=== PATIENT | male | born 1970 | race African-American/Black ===

== ENCOUNTER 2020-12-04 13:30 | Inpatient (IN) | payer OTHER ==
[~2020-12-04] VITALS: Ht 182.9 cm; Wt 105.6 kg
[~2020-12-04 13:30] MED LIST: ALBU108A5 IN; ATO40T PO; INSLANTI SC; INSREG3 IV; LEVO500T31 PO; LISI-716 PO; METF-372 PO
[2020-12-04 16:00] VITALS: BP 127/74
[2020-12-04] MEDS ORDERED: DEXTROSE (50%) 50ML SYRG IV PRN (16:45)
[2020-12-04] MEDS ORDERED: ONDANSETRON HCL 4 MG/2 ML VIAL IV PRN (16:45)
[2020-12-04] MEDS ORDERED: VANCOMYCIN PER PHARMACY 0 MG IV SCH (16:45)
[2020-12-04] MEDS ORDERED: VANCOMYCIN 1GM/250ML 250 ML IV ONE (17:09)
[2020-12-04 18:20] LABS: Basophils # (auto) 0.1 10 ^3/uL (0-0.2); Basophils % (auto) 1.2 % (0.0-2.0); Eosinophils # (auto) 0.3 10 ^3/uL (0-0.8); Eosinophils % (auto) 5.1 % (0.0-7.0); Hematocrit 33.4 % (41.0-53.0); Hemoglobin 11.1 g/dL (13.5-17.5); Lymphocytes # (auto) 2.1 10 ^3/uL (0.4-5.4); Lymphocytes % (auto) 33.7 % (10.0-50.0); Mean Corpuscular Hemoglobin 28.2 pg (28.0-32.0); Mean Corpuscular Hgb Conc. 33.3 g/dL (32.0-36.0); Mean Corpuscular Volume 84.8 fL (80.0-100.0); Monocytes # (auto) 0.5 10 ^3/uL (0-1.3); Neutrophils # (auto) 3.3 10 ^3/uL (1.6-8.6); Red Blood Cells 3.94 10^6/uL (4.5-5.90); Red Cell Distribution Width 15.1 % (11.8-14.3); White Blood Cell 6.3 10^3/uL (4.4-10.8)
[2020-12-04] MEDS: metFORMIN HYDROCHLORIDE 500 MG TAB PO SCH (18:22)
[2020-12-04 18:34] LABS: Partial Thromboplastin Time 24.9 sec (23.0-31.2)
[2020-12-04 18:40] LABS: Albumin 3.1 g/dL (3.4-5.0); Calcium 8.7 mg/dL (8.5-10.1); Potassium 4.2 mmol/L (3.5-5.1)
[2020-12-04 18:44] LABS: BUN/Creatinine Ratio 10.4; Bilirubin, Total 0.6 mg/dL (0.2-1.0); Total Protein 6.4 g/dL (6.4-8.2)
[2020-12-04] MEDS ORDERED: ASPI-498 OR (19:22)
[2020-12-04 20:00] VITALS: BP 133/78
[2020-12-04] MEDS: ATORVASTATIN 20 MG TAB PO SCH (21:18)
[2020-12-04] MEDS: ACCU-CHEK COMFORT CURVE STRIP VI SCH (21:19)
[2020-12-04] MEDS: InsuLIN REG 1unit/0.01ml Soln (100units/ml) SC SCH (21:19)
[2020-12-04] MEDS: HYDROcodone-ACET 10/325MG TAB PO PRN (21:20)
[2020-12-04] MEDS: PIPERACILLIN-TAZOB 3.375GM 100 ML IV SCH (21:21)
[2020-12-04 22:00] VITALS: BP 133/78
[2020-12-04] MEDS ORDERED: INSULIN LANTUS (GLARGINE) 1 /0.01ml (100units/ml) SC SCH (22:00)
[2020-12-05] MEDS: VANCOMYCIN 1GM/250ML 250 ML IV SCH ×2 (03:14→14:30)
[2020-12-05 05:00] VITALS: BP 131/72
[2020-12-05] MEDS: PIPERACILLIN-TAZOB 3.375GM 100 ML IV SCH ×3 (05:49→20:24)
[2020-12-05 06:15] LABS: Basophils # (auto) 0 10 ^3/uL (0-0.2); Basophils % (auto) 0.2 % (0.0-2.0); Eosinophils # (auto) 0.4 10 ^3/uL (0-0.8); Eosinophils % (auto) 6.3 % (0.0-7.0); Hematocrit 32.7 % (41.0-53.0); Hemoglobin 11.2 g/dL (13.5-17.5); Lymphocytes # (auto) 2.3 10 ^3/uL (0.4-5.4); Lymphocytes % (auto) 36.4 % (10.0-50.0); Mean Corpuscular Hemoglobin 29.1 pg (28.0-32.0); Mean Corpuscular Hgb Conc. 34.2 g/dL (32.0-36.0); Mean Corpuscular Volume 85.2 fL (80.0-100.0); Monocytes # (auto) 0.5 10 ^3/uL (0-1.3); Monocytes % (auto) 8.2 % (0.0-12.0); Neutrophils % (auto) 48.9 % (37.0-80.0); Red Blood Cells 3.83 10^6/uL (4.5-5.90); Red Cell Distribution Width 15.3 % (11.8-14.3); White Blood Cell 6.2 10^3/uL (4.4-10.8)
[2020-12-05 06:37] LABS: BUN/Creatinine Ratio 10.5; Calcium 8.4 mg/dL (8.5-10.1); Potassium 4.1 mmol/L (3.5-5.1)
[2020-12-05 07:30] VITALS: BP 118/78
[2020-12-05] MEDS: metFORMIN HYDROCHLORIDE 500 MG TAB PO SCH ×2 (08:30→18:00)
[2020-12-05] MEDS: InsuLIN REG 1unit/0.01ml Soln (100units/ml) SC SCH ×2 (09:30→21:26)
[2020-12-05] MEDS: LISINOPRIL 10 MG TAB PO SCH (09:40)
[2020-12-05] MEDS: HYDROcodone-ACET 10/325MG TAB PO PRN (09:41)
[2020-12-05] MEDS: ACCU-CHEK COMFORT CURVE STRIP VI SCH ×2 (09:42→21:24)
[2020-12-05] MEDS: ENOXAPARIN SOD 40 MG/0.4 ML SYRINGE SC SCH (09:43)
[2020-12-05 16:51] VITALS: BP 120/76
[2020-12-05 20:00] VITALS: BP 133/78
[2020-12-05] MEDS: INSULIN LANTUS (GLARGINE) 1 /0.01ml (100units/ml) SC SCH (21:25)
[2020-12-05] MEDS: ATORVASTATIN 20 MG TAB PO SCH (21:26)
[2020-12-05 22:00] VITALS: BP 119/53
[2020-12-06 05:10] VITALS: BP 106/64
[2020-12-06] MEDS: VANCOMYCIN 1GM/250ML 250 ML IV SCH ×2 (06:12→18:01)
[2020-12-06] MEDS: PIPERACILLIN-TAZOB 3.375GM 100 ML IV SCH ×3 (06:12→20:53)
[2020-12-06 09:00] VITALS: BP 135/84
[2020-12-06] MEDS: metFORMIN HYDROCHLORIDE 500 MG TAB PO SCH ×2 (09:00→18:33)
[2020-12-06] MEDS: LISINOPRIL 10 MG TAB PO SCH (09:16)
[2020-12-06] MEDS: ENOXAPARIN SOD 40 MG/0.4 ML SYRINGE SC SCH (09:17)
[2020-12-06] MEDS: ACCU-CHEK COMFORT CURVE STRIP VI SCH ×2 (09:17→22:40)
[2020-12-06] MEDS: InsuLIN REG 1unit/0.01ml Soln (100units/ml) SC SCH ×2 (10:00→22:11)
[2020-12-06 13:00] VITALS: BP 127/84
[2020-12-06 17:00] VITALS: BP 122/74
[2020-12-06] MEDS: INSULIN LANTUS (GLARGINE) 1 /0.01ml (100units/ml) SC SCH (22:08)
[2020-12-06] MEDS: ATORVASTATIN 20 MG TAB PO SCH (22:40)
[2020-12-06 23:43] VITALS: BP 97/41
[2020-12-07] MEDS: HYDROcodone-ACET 10/325MG TAB PO PRN ×3 (00:49→23:47)
[2020-12-07] MEDS: VANCOMYCIN 1GM/250ML 250 ML IV SCH ×3 (02:56→22:35)
[2020-12-07] MEDS: PIPERACILLIN-TAZOB 3.375GM 100 ML IV SCH ×3 (05:01→20:35)
[2020-12-07 05:10] VITALS: BP 101/50
[2020-12-07] MEDS: ENOXAPARIN SOD 40 MG/0.4 ML SYRINGE SC SCH (08:27)
[2020-12-07] MEDS: metFORMIN HYDROCHLORIDE 500 MG TAB PO SCH ×2 (08:27→18:00)
[2020-12-07] MEDS: ACCU-CHEK COMFORT CURVE STRIP VI SCH ×2 (08:38→22:00)
[2020-12-07] MEDS: InsuLIN REG 1unit/0.01ml Soln (100units/ml) SC SCH ×2 (08:38→22:40)
[2020-12-07 08:58] VITALS: BP 113/66
[2020-12-07] MEDS: LISINOPRIL 10 MG TAB PO SCH (10:00)
[2020-12-07 13:00] VITALS: BP 124/78
[2020-12-07 16:00] LABS: Basophils # (auto) 0.1 10 ^3/uL (0-0.2); Basophils % (auto) 1.2 % (0.0-2.0); Eosinophils # (auto) 0.3 10 ^3/uL (0-0.8); Hematocrit 33.8 % (41.0-53.0); Hemoglobin 11.4 g/dL (13.5-17.5); Mean Corpuscular Hemoglobin 28.6 pg (28.0-32.0); Mean Corpuscular Hgb Conc. 33.8 g/dL (32.0-36.0); Mean Corpuscular Volume 84.4 fL (80.0-100.0); Monocytes # (auto) 0.5 10 ^3/uL (0-1.3); Monocytes % (auto) 9.5 % (0.0-12.0); Neutrophils # (auto) 2.5 10 ^3/uL (1.6-8.6); Neutrophils % (auto) 46.3 % (37.0-80.0); Nucleated Red Blood Cells % 0.1 %; Red Cell Distribution Width 15.1 % (11.8-14.3); White Blood Cell 5.5 10^3/uL (4.4-10.8)
[2020-12-07 17:00] VITALS: BP 140/69
[2020-12-07 22:00] VITALS: BP 116/60
[2020-12-07] MEDS: ATORVASTATIN 20 MG TAB PO SCH (22:34)
[2020-12-07] MEDS: INSULIN LANTUS (GLARGINE) 1 /0.01ml (100units/ml) SC SCH (22:41)
[2020-12-08] MEDS: PIPERACILLIN-TAZOB 3.375GM 100 ML IV SCH ×3 (04:09→20:34)
[2020-12-08 05:00] VITALS: BP 120/66
[2020-12-08 07:30] LABS: Basophils # (auto) 0.1 10 ^3/uL (0-0.2); Eosinophils # (auto) 0.4 10 ^3/uL (0-0.8); Eosinophils % (auto) 6.5 % (0.0-7.0); Hematocrit 34.8 % (41.0-53.0); Hemoglobin 11.8 g/dL (13.5-17.5); Lymphocytes # (auto) 1.9 10 ^3/uL (0.4-5.4); Lymphocytes % (auto) 35.2 % (10.0-50.0); Mean Corpuscular Hemoglobin 28.7 pg (28.0-32.0); Mean Corpuscular Volume 84.5 fL (80.0-100.0); Monocytes # (auto) 0.5 10 ^3/uL (0-1.3); Monocytes % (auto) 9.1 % (0.0-12.0); Neutrophils # (auto) 2.6 10 ^3/uL (1.6-8.6); Neutrophils % (auto) 48.2 % (37.0-80.0); Nucleated Red Blood Cells % 0.1 %; Red Blood Cells 4.12 10^6/uL (4.5-5.90); Red Cell Distribution Width 14.9 % (11.8-14.3); White Blood Cell 5.4 10^3/uL (4.4-10.8)
[2020-12-08 07:43] LABS: INR 0.96 (0.9-1.15); Partial Thromboplastin Time 23.9 sec (23.0-31.2)
[2020-12-08] MEDS: metFORMIN HYDROCHLORIDE 500 MG TAB PO SCH ×2 (08:00→18:07)
[2020-12-08] MEDS ORDERED: ceFAZolin 1GM VL ONE (08:45)
[2020-12-08] MEDS ORDERED: ROPIVACAINE 0.5% (5MG/ML) 20ML AMPULE IJ ONE (08:45)
[2020-12-08] MEDS ORDERED: ceFAZolin 1GM/50ML 100 ML IV ONE (08:56)
[2020-12-08 09:00] VITALS: BP 151/83
[2020-12-08] MEDS ORDERED: SUCCINYLCHOLINE CHLORIDE 20 MG/ML 10ML VIAL IV ONE (09:07)
[2020-12-08] MEDS ORDERED: fentaNYL CITRATE 100 MCG/2 ML VL ONE (09:08)
[2020-12-08] MEDS ORDERED: MIDAZOLAM HCL 2MG/2ML 2ml VIAL (1mg/ml) ONE (09:08)
[2020-12-08] MEDS ORDERED: PROPOFOL 10 MG/ML 20 ML IV ONE (09:09)
[2020-12-08] MEDS ORDERED: ONDANSETRON HCL 4 MG/2 ML VIAL ONE (09:09)
[2020-12-08] MEDS ORDERED: LIDOCAINE 2% (LOCAL ANESTH.) PF 5ml SDV ONE (09:09)
[2020-12-08] MEDS ORDERED: NEOMYCIN-BACITRACIN-POLYM 15GM TOP OINT TOP ONE (09:35)
[2020-12-08] MEDS ORDERED: ONDANSETRON HCL 4 MG/2 ML VIAL IV PRN (10:00)
[2020-12-08] MEDS: ACCU-CHEK COMFORT CURVE STRIP VI SCH ×2 (10:00→22:26)
[2020-12-08] MEDS: LISINOPRIL 10 MG TAB PO SCH (10:00)
[2020-12-08] MEDS: InsuLIN REG 1unit/0.01ml Soln (100units/ml) SC SCH ×2 (10:00→22:16)
[2020-12-08] MEDS: ENOXAPARIN SOD 40 MG/0.4 ML SYRINGE SC SCH (10:00)
[2020-12-08 11:00] VITALS: BP 114/62
[2020-12-08 13:00] VITALS: BP 125/74
[2020-12-08] MEDS: HYDROcodone-ACET 10/325MG TAB PO PRN ×2 (13:32→18:10)
[2020-12-08] MEDS: VANCOMYCIN 1GM/250ML 250 ML IV SCH (16:28)
[2020-12-08 16:57] VITALS: BP 131/69
[2020-12-08] MEDS: MORPHINE SULFATE 4 MG/ML SYR/VIAL IV PRN (20:33)
[2020-12-08 22:00] VITALS: BP 126/67
[2020-12-08] MEDS: ATORVASTATIN 20 MG TAB PO SCH (22:15)
[2020-12-08] MEDS: INSULIN LANTUS (GLARGINE) 1 /0.01ml (100units/ml) SC SCH (22:26)
[2020-12-09 02:09] LABS: Basophils # (auto) 0.1 10 ^3/uL (0-0.2); Eosinophils # (auto) 0.3 10 ^3/uL (0-0.8); Eosinophils % (auto) 4.9 % (0.0-7.0); Hematocrit 32.5 % (41.0-53.0); Hemoglobin 10.9 g/dL (13.5-17.5); Lymphocytes # (auto) 1.6 10 ^3/uL (0.4-5.4); Lymphocytes % (auto) 24.7 % (10.0-50.0); Mean Corpuscular Hemoglobin 28.5 pg (28.0-32.0); Mean Corpuscular Hgb Conc. 33.5 g/dL (32.0-36.0); Mean Corpuscular Volume 85.1 fL (80.0-100.0); Monocytes # (auto) 0.6 10 ^3/uL (0-1.3); Monocytes % (auto) 9.3 % (0.0-12.0); Neutrophils # (auto) 3.9 10 ^3/uL (1.6-8.6); Neutrophils % (auto) 60.1 % (37.0-80.0); Nucleated Red Blood Cells % 0.1 %; Red Blood Cells 3.82 10^6/uL (4.5-5.90); Red Cell Distribution Width 14.6 % (11.8-14.3); White Blood Cell 6.5 10^3/uL (4.4-10.8)
[2020-12-09] MEDS: VANCOMYCIN 1GM/250ML 250 ML IV SCH ×2 (03:22→18:06)
[2020-12-09] MEDS: PIPERACILLIN-TAZOB 3.375GM 100 ML IV SCH ×3 (04:52→20:20)
[2020-12-09 05:00] VITALS: BP 106/55
[2020-12-09] MEDS: MORPHINE SULFATE 4 MG/ML SYR/VIAL IV PRN ×3 (05:13→19:58)
[2020-12-09] MEDS: metFORMIN HYDROCHLORIDE 500 MG TAB PO SCH ×2 (08:43→18:05)
[2020-12-09 09:00] VITALS: BP 119/59
[2020-12-09] MEDS: LISINOPRIL 10 MG TAB PO SCH (10:26)
[2020-12-09] MEDS: ENOXAPARIN SOD 40 MG/0.4 ML SYRINGE SC SCH (10:27)
[2020-12-09] MEDS: InsuLIN REG 1unit/0.01ml Soln (100units/ml) SC SCH ×2 (10:27→21:57)
[2020-12-09] MEDS: ACCU-CHEK COMFORT CURVE STRIP VI SCH ×2 (10:27→21:01)
[2020-12-09 13:00] VITALS: BP 121/62
[2020-12-09] MEDS ORDERED: LIDOCAINE 1% (LOCAL ANESTH.) PF 5ml SDV ID ONE (16:45)
[2020-12-09 17:00] VITALS: BP 148/69
[2020-12-09] MEDS: SODIUM CHLOR 0.9% PF (SALINE LOCK) 10ML VIAL/SYR IV SCH (20:51)
[2020-12-09] MEDS: ATORVASTATIN 20 MG TAB PO SCH (20:51)
[2020-12-09] MEDS: diphenhdrAMINE HCL 50 MG/1 ML VL IV PRN (20:57)
[2020-12-09] MEDS: INSULIN LANTUS (GLARGINE) 1 /0.01ml (100units/ml) SC SCH (21:58)
[2020-12-09 22:00] VITALS: BP 138/77
[2020-12-10] MEDS: PIPERACILLIN-TAZOB 3.375GM 100 ML IV SCH ×3 (04:25→20:20)
[2020-12-10 05:00] VITALS: BP 101/60
[2020-12-10 06:31] LABS: Basophils # (auto) 0.1 10 ^3/uL (0-0.2); Basophils % (auto) 1.1 % (0.0-2.0); Eosinophils # (auto) 0.3 10 ^3/uL (0-0.8); Eosinophils % (auto) 5.4 % (0.0-7.0); Hematocrit 32.4 % (41.0-53.0); Hemoglobin 11.1 g/dL (13.5-17.5); Lymphocytes # (auto) 1.4 10 ^3/uL (0.4-5.4); Lymphocytes % (auto) 23.9 % (10.0-50.0); Mean Corpuscular Hemoglobin 28.9 pg (28.0-32.0); Mean Corpuscular Hgb Conc. 34.1 g/dL (32.0-36.0); Mean Corpuscular Volume 84.7 fL (80.0-100.0); Monocytes # (auto) 0.7 10 ^3/uL (0-1.3); Monocytes % (auto) 11.1 % (0.0-12.0); Neutrophils # (auto) 3.4 10 ^3/uL (1.6-8.6); Neutrophils % (auto) 58.5 % (37.0-80.0); Red Blood Cells 3.82 10^6/uL (4.5-5.90); White Blood Cell 5.9 10^3/uL (4.4-10.8)
[2020-12-10] MEDS: metFORMIN HYDROCHLORIDE 500 MG TAB PO SCH ×2 (08:28→18:13)
[2020-12-10] MEDS: MORPHINE SULFATE 4 MG/ML SYR/VIAL IV PRN ×2 (08:36→15:37)
[2020-12-10 09:00] VITALS: BP 121/65
[2020-12-10] MEDS: ACCU-CHEK COMFORT CURVE STRIP VI SCH ×2 (10:00→22:24)
[2020-12-10] MEDS: LISINOPRIL 10 MG TAB PO SCH (10:33)
[2020-12-10] MEDS: ENOXAPARIN SOD 40 MG/0.4 ML SYRINGE SC SCH (10:33)
[2020-12-10] MEDS: InsuLIN REG 1unit/0.01ml Soln (100units/ml) SC SCH ×2 (10:34→22:40)
[2020-12-10] MEDS: SODIUM CHLOR 0.9% PF (SALINE LOCK) 10ML VIAL/SYR IV SCH ×2 (10:34→22:24)
[2020-12-10] MEDS: diphenhdrAMINE HCL 50 MG/1 ML VL IV PRN ×3 (10:58→20:15)
[2020-12-10 13:00] VITALS: BP 111/64
[2020-12-10] MEDS: VANCOMYCIN 1GM/250ML 250 ML IV SCH (13:49)
[2020-12-10 17:00] VITALS: BP 118/65
[2020-12-10] MEDS: OXYCODONE W/ ACETAMINOPHEN 5/325MG TABLET PO PRN (20:15)
[2020-12-10 22:00] VITALS: BP 109/63
[2020-12-10] MEDS: methylPREDNISolone SOD SUCC 125 MG/2 ML VL IV SCH (22:24)
[2020-12-10] MEDS: ATORVASTATIN 20 MG TAB PO SCH (22:24)
[2020-12-10] MEDS: MONTELUKAST SODIUM 10 MG TAB PO SCH (22:24)
[2020-12-10] MEDS: INSULIN LANTUS (GLARGINE) 1 /0.01ml (100units/ml) SC SCH (22:42)
[2020-12-11] MEDS: PIPERACILLIN-TAZOB 3.375GM 100 ML IV SCH ×3 (04:00→20:20)
[2020-12-11 05:00] VITALS: BP 132/75
[2020-12-11 06:42] LABS: Basophils # (auto) 0 10 ^3/uL (0-0.2); Basophils % (auto) 0.6 % (0.0-2.0); Eosinophils # (auto) 0 10 ^3/uL (0-0.8); Eosinophils % (auto) 0.4 % (0.0-7.0); Hematocrit 34.7 % (41.0-53.0); Hemoglobin 11.6 g/dL (13.5-17.5); Lymphocytes # (auto) 0.8 10 ^3/uL (0.4-5.4); Lymphocytes % (auto) 11.6 % (10.0-50.0); Mean Corpuscular Hemoglobin 28.9 pg (28.0-32.0); Mean Corpuscular Hgb Conc. 33.4 g/dL (32.0-36.0); Mean Corpuscular Volume 86.6 fL (80.0-100.0); Monocytes # (auto) 0.1 10 ^3/uL (0-1.3); Monocytes % (auto) 1.2 % (0.0-12.0); Neutrophils # (auto) 5.8 10 ^3/uL (1.6-8.6); Neutrophils % (auto) 86.2 % (37.0-80.0); Red Blood Cells 4.01 10^6/uL (4.5-5.90); Red Cell Distribution Width 15.2 % (11.8-14.3); White Blood Cell 6.8 10^3/uL (4.4-10.8)
[2020-12-11] MEDS: VANCOMYCIN 1GM/250ML 250 ML IV SCH (07:00)
[2020-12-11] MEDS: OXYCODONE W/ ACETAMINOPHEN 5/325MG TABLET PO PRN ×3 (07:18→20:32)
[2020-12-11] MEDS: metFORMIN HYDROCHLORIDE 500 MG TAB PO SCH ×2 (07:56→18:04)
[2020-12-11 09:00] VITALS: BP 118/76
[2020-12-11] MEDS: InsuLIN REG 1unit/0.01ml Soln (100units/ml) SC SCH ×2 (09:44→22:00)
[2020-12-11] MEDS: ACCU-CHEK COMFORT CURVE STRIP VI SCH ×2 (09:44→22:02)
[2020-12-11] MEDS: FLUCONAZOLE 100 MG TAB PO SCH (09:44)
[2020-12-11] MEDS: LISINOPRIL 10 MG TAB PO SCH (09:45)
[2020-12-11] MEDS: SODIUM CHLOR 0.9% PF (SALINE LOCK) 10ML VIAL/SYR IV SCH ×2 (09:45→22:10)
[2020-12-11] MEDS: ENOXAPARIN SOD 40 MG/0.4 ML SYRINGE SC SCH (09:45)
[2020-12-11] MEDS: methylPREDNISolone SOD SUCC 125 MG/2 ML VL IV SCH ×2 (10:00→22:09)
[2020-12-11] MEDS: diphenhdrAMINE HCL 50 MG/1 ML VL IV PRN ×2 (12:40→20:40)
[2020-12-11 13:00] VITALS: BP 110/64
[2020-12-11 16:51] VITALS: BP 106/61
[2020-12-11 22:00] VITALS: BP 120/70
[2020-12-11] MEDS: INSULIN LANTUS (GLARGINE) 1 /0.01ml (100units/ml) SC SCH (22:00)
[2020-12-11] MEDS: MONTELUKAST SODIUM 10 MG TAB PO SCH (22:09)
[2020-12-11] MEDS: ATORVASTATIN 20 MG TAB PO SCH (22:09)
[2020-12-12] MEDS: VANCOMYCIN 1GM/250ML 250 ML IV SCH ×2 (01:55→18:52)
[2020-12-12] MEDS: PIPERACILLIN-TAZOB 3.375GM 100 ML IV SCH ×3 (03:59→20:11)
[2020-12-12 05:00] VITALS: BP 104/63
[2020-12-12] MEDS: OXYCODONE W/ ACETAMINOPHEN 5/325MG TABLET PO PRN ×3 (05:35→22:38)
[2020-12-12] MEDS: metFORMIN HYDROCHLORIDE 500 MG TAB PO SCH ×2 (08:00→17:58)
[2020-12-12 09:00] VITALS: BP 137/75
[2020-12-12] MEDS: SODIUM CHLOR 0.9% PF (SALINE LOCK) 10ML VIAL/SYR IV SCH ×2 (10:15→22:25)
[2020-12-12] MEDS: FLUCONAZOLE 100 MG TAB PO SCH (10:15)
[2020-12-12] MEDS: methylPREDNISolone SOD SUCC 125 MG/2 ML VL IV SCH (10:15)
[2020-12-12] MEDS: ENOXAPARIN SOD 40 MG/0.4 ML SYRINGE SC SCH (10:16)
[2020-12-12] MEDS: LISINOPRIL 10 MG TAB PO SCH (10:16)
[2020-12-12] MEDS: InsuLIN REG 1unit/0.01ml Soln (100units/ml) SC SCH ×2 (10:25→22:27)
[2020-12-12] MEDS: ACCU-CHEK COMFORT CURVE STRIP VI SCH ×2 (10:25→22:26)
[2020-12-12] MEDS: diphenhdrAMINE HCL 50 MG/1 ML VL IV PRN ×2 (12:53→22:38)
[2020-12-12 13:00] VITALS: BP 117/76
[2020-12-12 16:41] VITALS: BP 124/73
[2020-12-12 22:18] VITALS: BP 135/83
[2020-12-12] MEDS: MONTELUKAST SODIUM 10 MG TAB PO SCH (22:25)
[2020-12-12] MEDS: ATORVASTATIN 20 MG TAB PO SCH (22:25)
[2020-12-12] MEDS: INSULIN LANTUS (GLARGINE) 1 /0.01ml (100units/ml) SC SCH (22:26)
[2020-12-13] MEDS: PIPERACILLIN-TAZOB 3.375GM 100 ML IV SCH ×3 (03:35→19:59)
[2020-12-13 05:08] VITALS: BP 111/72
[2020-12-13 08:00] VITALS: BP 118/55
[2020-12-13 09:00] VITALS: BP 151/66
[2020-12-13] MEDS: ENOXAPARIN SOD 40 MG/0.4 ML SYRINGE SC SCH (10:02)
[2020-12-13] MEDS: LISINOPRIL 10 MG TAB PO SCH (10:03)
[2020-12-13] MEDS: metFORMIN HYDROCHLORIDE 500 MG TAB PO SCH ×2 (10:03→17:40)
[2020-12-13] MEDS: FLUCONAZOLE 100 MG TAB PO SCH (10:03)
[2020-12-13] MEDS: OXYCODONE W/ ACETAMINOPHEN 5/325MG TABLET PO PRN ×2 (10:04→17:41)
[2020-12-13] MEDS: ACCU-CHEK COMFORT CURVE STRIP VI SCH ×2 (10:05→21:02)
[2020-12-13] MEDS: SODIUM CHLOR 0.9% PF (SALINE LOCK) 10ML VIAL/SYR IV SCH ×2 (10:05→21:02)
[2020-12-13] MEDS: diphenhdrAMINE HCL 50 MG/1 ML VL IV PRN ×2 (10:08→17:41)
[2020-12-13] MEDS: InsuLIN REG 1unit/0.01ml Soln (100units/ml) SC SCH ×2 (10:32→21:04)
[2020-12-13 12:41] VITALS: BP 148/77
[2020-12-13] MEDS: VANCOMYCIN 1GM/250ML 250 ML IV SCH (13:17)
[2020-12-13 16:44] VITALS: BP 118/55
[2020-12-13] MEDS: ATORVASTATIN 20 MG TAB PO SCH (21:02)
[2020-12-13] MEDS: MONTELUKAST SODIUM 10 MG TAB PO SCH (21:02)
[2020-12-13] MEDS: INSULIN LANTUS (GLARGINE) 1 /0.01ml (100units/ml) SC SCH (21:03)
[2020-12-13 22:06] VITALS: BP 117/66
[2020-12-14] MEDS: PIPERACILLIN-TAZOB 3.375GM 100 ML IV SCH ×3 (03:38→20:15)
[2020-12-14 05:12] VITALS: BP 122/73
[2020-12-14] MEDS: VANCOMYCIN 1GM/250ML 250 ML IV SCH ×2 (07:41→23:10)
[2020-12-14 08:00] VITALS: BP 151/66
[2020-12-14 09:00] VITALS: BP 145/77
[2020-12-14] MEDS: ACCU-CHEK COMFORT CURVE STRIP VI SCH ×2 (10:00→22:04)
[2020-12-14] MEDS: SODIUM CHLOR 0.9% PF (SALINE LOCK) 10ML VIAL/SYR IV SCH ×2 (10:00→22:03)
[2020-12-14] MEDS: OXYCODONE W/ ACETAMINOPHEN 5/325MG TABLET PO PRN ×2 (11:03→23:15)
[2020-12-14] MEDS: diphenhdrAMINE HCL 50 MG/1 ML VL IV PRN ×2 (11:08→22:04)
[2020-12-14] MEDS: ENOXAPARIN SOD 40 MG/0.4 ML SYRINGE SC SCH (11:08)
[2020-12-14] MEDS: FLUCONAZOLE 100 MG TAB PO SCH (11:12)
[2020-12-14] MEDS: LISINOPRIL 10 MG TAB PO SCH (11:12)
[2020-12-14] MEDS: metFORMIN HYDROCHLORIDE 500 MG TAB PO SCH ×2 (11:31→18:00)
[2020-12-14] MEDS: InsuLIN REG 1unit/0.01ml Soln (100units/ml) SC SCH ×2 (11:39→22:07)
[2020-12-14 13:00] VITALS: BP 122/80
[2020-12-14] MEDS ORDERED: VANCOMYCIN 1GM/250ML 250 ML IV SCH (15:00)
[2020-12-14 17:00] VITALS: BP 101/58
[2020-12-14] MEDS: ATORVASTATIN 20 MG TAB PO SCH (22:03)
[2020-12-14] MEDS: MONTELUKAST SODIUM 10 MG TAB PO SCH (22:03)
[2020-12-14] MEDS: INSULIN LANTUS (GLARGINE) 1 /0.01ml (100units/ml) SC SCH (22:06)
[2020-12-14 22:25] VITALS: BP 114/80
[2020-12-15] MEDS: PIPERACILLIN-TAZOB 3.375GM 100 ML IV SCH ×3 (03:37→19:50)
[2020-12-15 05:17] VITALS: BP 98/58
[2020-12-15] MEDS: metFORMIN HYDROCHLORIDE 500 MG TAB PO SCH ×2 (08:00→18:28)
[2020-12-15 09:00] VITALS: BP 114/74
[2020-12-15] MEDS: ENOXAPARIN SOD 40 MG/0.4 ML SYRINGE SC SCH (10:00)
[2020-12-15] MEDS: LISINOPRIL 10 MG TAB PO SCH (10:00)
[2020-12-15] MEDS: ACCU-CHEK COMFORT CURVE STRIP VI SCH ×2 (10:00→21:12)
[2020-12-15] MEDS: FLUCONAZOLE 100 MG TAB PO SCH (10:00)
[2020-12-15] MEDS: SODIUM CHLOR 0.9% PF (SALINE LOCK) 10ML VIAL/SYR IV SCH ×2 (10:00→21:11)
[2020-12-15 12:30] VITALS: BP 128/80
[2020-12-15] MEDS: InsuLIN REG 1unit/0.01ml Soln (100units/ml) SC SCH ×2 (15:52→21:14)
[2020-12-15 16:30] VITALS: BP 107/71
[2020-12-15] MEDS: VANCOMYCIN 1GM/250ML 250 ML IV SCH (16:56)
[2020-12-15] MEDS: MONTELUKAST SODIUM 10 MG TAB PO SCH (21:11)
[2020-12-15] MEDS: ATORVASTATIN 20 MG TAB PO SCH (21:12)
[2020-12-15] MEDS: OXYCODONE W/ ACETAMINOPHEN 5/325MG TABLET PO PRN (21:12)
[2020-12-15] MEDS: INSULIN LANTUS (GLARGINE) 1 /0.01ml (100units/ml) SC SCH (21:14)
[2020-12-15 22:17] VITALS: BP 110/68
[2020-12-16] VITALS (7 sets, daily range): BP systolic 108–158; BP diastolic 65–79
[2020-12-16] MEDS: PIPERACILLIN-TAZOB 3.375GM 100 ML IV SCH ×2 (03:29→13:42)
[2020-12-16 05:28] LABS: Basophils # (auto) 0.1 10 ^3/uL (0-0.2); Basophils % (auto) 1.9 % (0.0-2.0); Eosinophils # (auto) 0.5 10 ^3/uL (0-0.8); Eosinophils % (auto) 8.5 % (0.0-7.0); Hematocrit 33.4 % (41.0-53.0); Hemoglobin 11.2 g/dL (13.5-17.5); Lymphocytes # (auto) 2.3 10 ^3/uL (0.4-5.4); Mean Corpuscular Hemoglobin 28.4 pg (28.0-32.0); Mean Corpuscular Hgb Conc. 33.5 g/dL (32.0-36.0); Mean Corpuscular Volume 84.9 fL (80.0-100.0); Monocytes # (auto) 0.5 10 ^3/uL (0-1.3); Neutrophils # (auto) 2.5 10 ^3/uL (1.6-8.6); Neutrophils % (auto) 42.6 % (37.0-80.0); Nucleated Red Blood Cells % 0.1 %; Red Blood Cells 3.94 10^6/uL (4.5-5.90); Red Cell Distribution Width 14.8 % (11.8-14.3); White Blood Cell 5.8 10^3/uL (4.4-10.8)
[2020-12-16 05:40] LABS: BUN/Creatinine Ratio 13.6; Calcium 8.4 mg/dL (8.5-10.1)
[2020-12-16] MEDS: VANCOMYCIN 1GM/250ML 250 ML IV SCH ×2 (06:25→17:58)
[2020-12-16] MEDS: metFORMIN HYDROCHLORIDE 500 MG TAB PO SCH ×2 (08:31→17:59)
[2020-12-16] MEDS: ACCU-CHEK COMFORT CURVE STRIP VI SCH ×2 (10:00→22:00)
[2020-12-16] MEDS: SODIUM CHLOR 0.9% PF (SALINE LOCK) 10ML VIAL/SYR IV SCH (10:00)
[2020-12-16] MEDS: FLUCONAZOLE 100 MG TAB PO SCH (10:56)
[2020-12-16] MEDS: LISINOPRIL 10 MG TAB PO SCH (10:56)
[2020-12-16] MEDS: ENOXAPARIN SOD 40 MG/0.4 ML SYRINGE SC SCH (10:57)
[2020-12-16] MEDS: InsuLIN REG 1unit/0.01ml Soln (100units/ml) SC SCH ×2 (11:10→22:00)
[2020-12-16] MEDS: OXYCODONE W/ ACETAMINOPHEN 5/325MG TABLET PO PRN (14:10)
[2020-12-16] MEDS: INSULIN LANTUS (GLARGINE) 1 /0.01ml (100units/ml) SC SCH (22:00)
[2020-12-17] MEDS: SODIUM CHLOR 0.9% PF (SALINE LOCK) 10ML VIAL/SYR IV SCH ×3 (01:00→21:45)
[2020-12-17] MEDS: PIPERACILLIN-TAZOB 3.375GM 100 ML IV SCH ×4 (01:00→20:31)
[2020-12-17] MEDS: ATORVASTATIN 20 MG TAB PO SCH ×2 (01:01→21:45)
[2020-12-17] MEDS: MONTELUKAST SODIUM 10 MG TAB PO SCH ×2 (01:01→21:47)
[2020-12-17 05:00] VITALS: BP 107/65
[2020-12-17] MEDS: VANCOMYCIN 1GM/250ML 250 ML IV SCH ×2 (05:52→17:29)
[2020-12-17] MEDS: FLUCONAZOLE 100 MG TAB PO SCH (09:16)
[2020-12-17] MEDS: metFORMIN HYDROCHLORIDE 500 MG TAB PO SCH ×2 (09:16→17:22)
[2020-12-17] MEDS: LISINOPRIL 10 MG TAB PO SCH (09:16)
[2020-12-17] MEDS: OXYCODONE W/ ACETAMINOPHEN 5/325MG TABLET PO PRN ×3 (09:17→20:31)
[2020-12-17] MEDS: ENOXAPARIN SOD 40 MG/0.4 ML SYRINGE SC SCH (09:17)
[2020-12-17] MEDS: ACCU-CHEK COMFORT CURVE STRIP VI SCH ×2 (11:02→21:46)
[2020-12-17] MEDS: InsuLIN REG 1unit/0.01ml Soln (100units/ml) SC SCH ×2 (11:04→21:44)
[2020-12-17 13:20] VITALS: BP 141/70
[2020-12-17 17:00] VITALS: BP 119/75
[2020-12-17] MEDS: INSULIN LANTUS (GLARGINE) 1 /0.01ml (100units/ml) SC SCH (21:43)
[2020-12-17] MEDS: diphenhdrAMINE HCL 50 MG/1 ML VL IV PRN (21:45)
[2020-12-17 22:00] VITALS: BP 110/70
[2020-12-18] MEDS: PIPERACILLIN-TAZOB 3.375GM 100 ML IV SCH ×3 (03:50→17:25)
[2020-12-18 05:00] VITALS: BP 116/55
[2020-12-18 09:00] VITALS: BP 130/77
[2020-12-18] MEDS: FLUCONAZOLE 100 MG TAB PO SCH (09:49)
[2020-12-18] MEDS: LISINOPRIL 10 MG TAB PO SCH (09:49)
[2020-12-18] MEDS: metFORMIN HYDROCHLORIDE 500 MG TAB PO SCH ×2 (09:50→17:21)
[2020-12-18] MEDS: ENOXAPARIN SOD 40 MG/0.4 ML SYRINGE SC SCH (09:50)
[2020-12-18] MEDS: ACCU-CHEK COMFORT CURVE STRIP VI SCH ×2 (09:50→22:00)
[2020-12-18] MEDS: InsuLIN REG 1unit/0.01ml Soln (100units/ml) SC SCH ×2 (09:55→22:00)
[2020-12-18] MEDS: SODIUM CHLOR 0.9% PF (SALINE LOCK) 10ML VIAL/SYR IV SCH ×2 (10:10→22:00)
[2020-12-18] MEDS: diphenhdrAMINE HCL 50 MG/1 ML VL IV PRN (10:11)
[2020-12-18] MEDS: OXYCODONE W/ ACETAMINOPHEN 5/325MG TABLET PO PRN (10:11)
[2020-12-18] MEDS: VANCOMYCIN 1GM/250ML 250 ML IV SCH ×2 (11:23→23:23)
[2020-12-18 13:00] VITALS: BP 118/70
[2020-12-18 17:00] VITALS: BP 116/77
[2020-12-18 20:00] VITALS: BP 133/73
[2020-12-18 22:00] VITALS: BP 133/73
[2020-12-18] MEDS: MONTELUKAST SODIUM 10 MG TAB PO SCH (22:00)
[2020-12-18] MEDS: INSULIN LANTUS (GLARGINE) 1 /0.01ml (100units/ml) SC SCH (22:00)
[2020-12-18] MEDS: ATORVASTATIN 20 MG TAB PO SCH (22:00)
[2020-12-19] MEDS: PIPERACILLIN-TAZOB 3.375GM 100 ML IV SCH ×3 (04:00→20:58)
[2020-12-19 05:00] VITALS: BP 111/70
[2020-12-19 08:00] VITALS: BP 100/67
[2020-12-19] MEDS: metFORMIN HYDROCHLORIDE 500 MG TAB PO SCH ×2 (08:21→18:06)
[2020-12-19 08:43] VITALS: BP 100/67
[2020-12-19] MEDS: SODIUM CHLOR 0.9% PF (SALINE LOCK) 10ML VIAL/SYR IV SCH ×2 (09:44→22:30)
[2020-12-19] MEDS: FLUCONAZOLE 100 MG TAB PO SCH (09:44)
[2020-12-19] MEDS: LISINOPRIL 10 MG TAB PO SCH (09:45)
[2020-12-19] MEDS: ENOXAPARIN SOD 40 MG/0.4 ML SYRINGE SC SCH (09:46)
[2020-12-19] MEDS: ACCU-CHEK COMFORT CURVE STRIP VI SCH ×2 (09:46→22:34)
[2020-12-19] MEDS: InsuLIN REG 1unit/0.01ml Soln (100units/ml) SC SCH ×2 (09:53→22:29)
[2020-12-19] MEDS: OXYCODONE W/ ACETAMINOPHEN 5/325MG TABLET PO PRN ×3 (09:54→22:33)
[2020-12-19] MEDS: VANCOMYCIN 1GM/250ML 250 ML IV SCH (11:05)
[2020-12-19 13:00] VITALS: BP 109/62
[2020-12-19 16:41] VITALS: BP 141/72
[2020-12-19 22:17] VITALS: BP 111/71
[2020-12-19] MEDS: diphenhdrAMINE HCL 50 MG/1 ML VL IV PRN (22:31)
[2020-12-19] MEDS: ATORVASTATIN 20 MG TAB PO SCH (22:33)
[2020-12-19] MEDS: MONTELUKAST SODIUM 10 MG TAB PO SCH (22:33)
[2020-12-19] MEDS: INSULIN LANTUS (GLARGINE) 1 /0.01ml (100units/ml) SC SCH (22:42)
[2020-12-20] MEDS: VANCOMYCIN 1GM/250ML 250 ML IV SCH ×2 (01:11→10:50)
[2020-12-20] MEDS: PIPERACILLIN-TAZOB 3.375GM 100 ML IV SCH ×3 (03:34→21:09)
[2020-12-20 04:48] VITALS: BP 88/54
[2020-12-20] MEDS: OXYCODONE W/ ACETAMINOPHEN 5/325MG TABLET PO PRN ×3 (07:03→21:11)
[2020-12-20] MEDS: metFORMIN HYDROCHLORIDE 500 MG TAB PO SCH ×2 (07:55→17:35)
[2020-12-20 08:00] VITALS: BP 118/72
[2020-12-20 08:43] VITALS: BP 118/72
[2020-12-20] MEDS: SODIUM CHLOR 0.9% PF (SALINE LOCK) 10ML VIAL/SYR IV SCH ×2 (10:00→21:09)
[2020-12-20] MEDS: InsuLIN REG 1unit/0.01ml Soln (100units/ml) SC SCH ×2 (10:45→22:00)
[2020-12-20] MEDS: FLUCONAZOLE 100 MG TAB PO SCH (10:49)
[2020-12-20] MEDS: LISINOPRIL 10 MG TAB PO SCH (10:49)
[2020-12-20] MEDS: ACCU-CHEK COMFORT CURVE STRIP VI SCH ×2 (10:50→22:31)
[2020-12-20] MEDS: BACITRACIN TOP OINT 1 UD PKG TOP SCH (10:50)
[2020-12-20] MEDS: ENOXAPARIN SOD 40 MG/0.4 ML SYRINGE SC SCH (10:50)
[2020-12-20 13:00] VITALS: BP 112/70
[2020-12-20] MEDS: diphenhdrAMINE HCL 50 MG/1 ML VL IV PRN ×2 (13:58→21:10)
[2020-12-20 16:30] VITALS: BP 121/75
[2020-12-20] MEDS: ATORVASTATIN 20 MG TAB PO SCH (21:09)
[2020-12-20] MEDS: MONTELUKAST SODIUM 10 MG TAB PO SCH (21:10)
[2020-12-20 22:00] VITALS: BP 111/74
[2020-12-20] MEDS: INSULIN LANTUS (GLARGINE) 1 /0.01ml (100units/ml) SC SCH (22:30)
[2020-12-21] MEDS: VANCOMYCIN 1GM/250ML 250 ML IV SCH ×2 (02:05→12:41)
[2020-12-21] MEDS: PIPERACILLIN-TAZOB 3.375GM 100 ML IV SCH ×3 (04:48→22:39)
[2020-12-21 04:58] VITALS: BP 110/70
[2020-12-21 07:13] LABS: Basophils # (auto) 0.1 10 ^3/uL (0-0.2); Basophils % (auto) 2.4 % (0.0-2.0); Eosinophils # (auto) 0.3 10 ^3/uL (0-0.8); Eosinophils % (auto) 6.6 % (0.0-7.0); Hematocrit 32.4 % (41.0-53.0); Hemoglobin 11.1 g/dL (13.5-17.5); Lymphocytes # (auto) 1.9 10 ^3/uL (0.4-5.4); Lymphocytes % (auto) 38.4 % (10.0-50.0); Mean Corpuscular Hemoglobin 28.7 pg (28.0-32.0); Mean Corpuscular Hgb Conc. 34.3 g/dL (32.0-36.0); Mean Corpuscular Volume 83.8 fL (80.0-100.0); Monocytes # (auto) 0.5 10 ^3/uL (0-1.3); Monocytes % (auto) 9.5 % (0.0-12.0); Neutrophils # (auto) 2.2 10 ^3/uL (1.6-8.6); Neutrophils % (auto) 43.1 % (37.0-80.0); Nucleated Red Blood Cells % 0.1 %; Red Blood Cells 3.87 10^6/uL (4.5-5.90); Red Cell Distribution Width 14.4 % (11.8-14.3)
[2020-12-21] MEDS: metFORMIN HYDROCHLORIDE 500 MG TAB PO SCH ×2 (08:53→18:13)
[2020-12-21 09:00] VITALS: BP 118/74
[2020-12-21] MEDS: ENOXAPARIN SOD 40 MG/0.4 ML SYRINGE SC SCH (10:09)
[2020-12-21] MEDS: SODIUM CHLOR 0.9% PF (SALINE LOCK) 10ML VIAL/SYR IV SCH ×2 (10:09→22:00)
[2020-12-21] MEDS: FLUCONAZOLE 100 MG TAB PO SCH (10:09)
[2020-12-21] MEDS: LISINOPRIL 10 MG TAB PO SCH (10:10)
[2020-12-21] MEDS: OXYCODONE W/ ACETAMINOPHEN 5/325MG TABLET PO PRN (10:11)
[2020-12-21] MEDS: InsuLIN REG 1unit/0.01ml Soln (100units/ml) SC SCH ×2 (10:24→22:00)
[2020-12-21] MEDS: ACCU-CHEK COMFORT CURVE STRIP VI SCH ×2 (10:25→22:00)
[2020-12-21] MEDS ORDERED: VANCOMYCIN 1GM/250ML 250 ML IV SCH (12:45)
[2020-12-21 13:00] VITALS: BP 131/80
[2020-12-21 16:35] VITALS: BP 129/76
[2020-12-21 22:00] VITALS: BP 110/74
[2020-12-21] MEDS: ATORVASTATIN 20 MG TAB PO SCH (22:39)
[2020-12-21] MEDS: MONTELUKAST SODIUM 10 MG TAB PO SCH (22:39)
[2020-12-21] MEDS: INSULIN LANTUS (GLARGINE) 1 /0.01ml (100units/ml) SC SCH (22:42)
[2020-12-21] MEDS: diphenhdrAMINE HCL 50 MG/1 ML VL IV PRN (23:08)
[2020-12-22] MEDS: VANCOMYCIN 1GM/250ML 250 ML IV SCH ×2 (01:43→13:34)
[2020-12-22 05:00] VITALS: BP 101/60
[2020-12-22] MEDS: PIPERACILLIN-TAZOB 3.375GM 100 ML IV SCH ×3 (06:11→23:49)
[2020-12-22] MEDS: metFORMIN HYDROCHLORIDE 500 MG TAB PO SCH ×2 (08:09→18:00)
[2020-12-22 09:00] VITALS: BP 106/68
[2020-12-22] MEDS: InsuLIN REG 1unit/0.01ml Soln (100units/ml) SC SCH ×2 (10:00→21:52)
[2020-12-22] MEDS: FLUCONAZOLE 100 MG TAB PO SCH (10:19)
[2020-12-22] MEDS: SODIUM CHLOR 0.9% PF (SALINE LOCK) 10ML VIAL/SYR IV SCH ×2 (10:19→21:09)
[2020-12-22] MEDS: LISINOPRIL 10 MG TAB PO SCH (10:20)
[2020-12-22] MEDS: BACITRACIN TOP OINT 1 UD PKG TOP SCH (10:20)
[2020-12-22] MEDS: ACCU-CHEK COMFORT CURVE STRIP VI SCH ×2 (10:55→21:44)
[2020-12-22] MEDS ORDERED: PIPERACILLIN-TAZOB 3.375GM 100 ML IV SCH (12:45)
[2020-12-22 13:00] VITALS: BP 126/76
[2020-12-22] MEDS: diphenhdrAMINE HCL 50 MG/1 ML VL IV PRN ×2 (14:38→22:15)
[2020-12-22 17:00] VITALS: BP 115/52
[2020-12-22] MEDS: INSULIN LANTUS (GLARGINE) 1 /0.01ml (100units/ml) SC SCH (21:52)
[2020-12-22] MEDS: ATORVASTATIN 20 MG TAB PO SCH (21:54)
[2020-12-22] MEDS: MONTELUKAST SODIUM 10 MG TAB PO SCH (21:54)
[2020-12-22 22:00] VITALS: BP 108/74
[2020-12-22] MEDS: HYDROcodone-ACET 10/325MG TAB PO PRN (22:14)
[2020-12-23] MEDS: VANCOMYCIN 1GM/250ML 250 ML IV SCH ×2 (01:52→13:43)
[2020-12-23 05:00] VITALS: BP 97/61
[2020-12-23 08:00] VITALS: BP 109/51
[2020-12-23] MEDS: metFORMIN HYDROCHLORIDE 500 MG TAB PO SCH ×2 (08:28→17:55)
[2020-12-23] MEDS: InsuLIN REG 1unit/0.01ml Soln (100units/ml) SC SCH ×2 (10:00→22:00)
[2020-12-23] MEDS: LISINOPRIL 10 MG TAB PO SCH (10:00)
[2020-12-23] MEDS: HYDROcodone-ACET 10/325MG TAB PO PRN ×2 (10:31→21:41)
[2020-12-23] MEDS: ACCU-CHEK COMFORT CURVE STRIP VI SCH ×2 (10:31→22:00)
[2020-12-23] MEDS: SODIUM CHLOR 0.9% PF (SALINE LOCK) 10ML VIAL/SYR IV SCH ×2 (10:32→21:42)
[2020-12-23 12:00] VITALS: BP 135/89
[2020-12-23] MEDS: diphenhdrAMINE HCL 50 MG/1 ML VL IV PRN ×2 (13:55→21:40)
[2020-12-23 16:00] VITALS: BP 111/67
[2020-12-23 20:00] VITALS: BP 109/51
[2020-12-23] MEDS: MONTELUKAST SODIUM 10 MG TAB PO SCH (21:40)
[2020-12-23] MEDS: ATORVASTATIN 20 MG TAB PO SCH (21:41)
[2020-12-23 22:00] VITALS: BP 113/63
[2020-12-23] MEDS: INSULIN LANTUS (GLARGINE) 1 /0.01ml (100units/ml) SC SCH (22:00)
[2020-12-24] MEDS: VANCOMYCIN 1GM/250ML 250 ML IV SCH ×2 (03:24→20:53)
[2020-12-24 05:00] VITALS: BP 100/59
[2020-12-24 08:37] VITALS: BP 107/65
[2020-12-24] MEDS: metFORMIN HYDROCHLORIDE 500 MG TAB PO SCH ×2 (09:59→18:14)
[2020-12-24] MEDS: LISINOPRIL 10 MG TAB PO SCH (10:00)
[2020-12-24] MEDS: InsuLIN REG 1unit/0.01ml Soln (100units/ml) SC SCH ×2 (10:00→22:00)
[2020-12-24] MEDS: SODIUM CHLOR 0.9% PF (SALINE LOCK) 10ML VIAL/SYR IV SCH ×2 (10:01→21:57)
[2020-12-24] MEDS: ACCU-CHEK COMFORT CURVE STRIP VI SCH ×2 (10:03→22:08)
[2020-12-24] MEDS: HYDROcodone-ACET 10/325MG TAB PO PRN ×2 (10:18→22:13)
[2020-12-24] MEDS: BACITRACIN TOP OINT 1 UD PKG TOP SCH (11:42)
[2020-12-24 12:49] VITALS: BP 118/77
[2020-12-24] MEDS: diphenhdrAMINE HCL 50 MG/1 ML VL IV PRN (16:03)
[2020-12-24 17:07] VITALS: BP 127/78
[2020-12-24] MEDS: ATORVASTATIN 20 MG TAB PO SCH (21:57)
[2020-12-24] MEDS: MONTELUKAST SODIUM 10 MG TAB PO SCH (21:57)
[2020-12-24] MEDS: PIPERACILLIN-TAZOB 3.375GM 100 ML IV SCH (21:57)
[2020-12-24 22:00] VITALS: BP 130/74
[2020-12-24] MEDS: INSULIN LANTUS (GLARGINE) 1 /0.01ml (100units/ml) SC SCH (22:08)
[2020-12-25 05:00] VITALS: BP 94/60
[2020-12-25] MEDS: PIPERACILLIN-TAZOB 3.375GM 100 ML IV SCH ×3 (05:38→23:04)
[2020-12-25 05:59] LABS: Basophils # (auto) 0 10 ^3/uL (0-0.2); Basophils % (auto) 0.1 % (0.0-2.0); Eosinophils # (auto) 0.3 10 ^3/uL (0-0.8); Eosinophils % (auto) 5.8 % (0.0-7.0); Hematocrit 33.6 % (41.0-53.0); Hemoglobin 11.3 g/dL (13.5-17.5); Lymphocytes % (auto) 37.8 % (10.0-50.0); Mean Corpuscular Hemoglobin 28.4 pg (28.0-32.0); Mean Corpuscular Hgb Conc. 33.5 g/dL (32.0-36.0); Mean Corpuscular Volume 84.7 fL (80.0-100.0); Monocytes # (auto) 0.4 10 ^3/uL (0-1.3); Monocytes % (auto) 7.6 % (0.0-12.0); Neutrophils # (auto) 2.6 10 ^3/uL (1.6-8.6); Neutrophils % (auto) 48.7 % (37.0-80.0); Nucleated Red Blood Cells % 0.1 %; Red Blood Cells 3.97 10^6/uL (4.5-5.90); Red Cell Distribution Width 14.9 % (11.8-14.3); White Blood Cell 5.4 10^3/uL (4.4-10.8)
[2020-12-25 06:41] LABS: BUN/Creatinine Ratio 14.6; Calcium 8.9 mg/dL (8.5-10.1)
[2020-12-25] MEDS: metFORMIN HYDROCHLORIDE 500 MG TAB PO SCH ×2 (08:19→18:35)
[2020-12-25] MEDS: HYDROcodone-ACET 10/325MG TAB PO PRN ×2 (08:20→21:14)
[2020-12-25 08:47] VITALS: BP 119/73
[2020-12-25] MEDS: diphenhdrAMINE HCL 50 MG/1 ML VL IV PRN ×2 (09:37→21:14)
[2020-12-25] MEDS: SODIUM CHLOR 0.9% PF (SALINE LOCK) 10ML VIAL/SYR IV SCH ×2 (09:43→20:51)
[2020-12-25] MEDS: ACCU-CHEK COMFORT CURVE STRIP VI SCH ×2 (09:44→20:52)
[2020-12-25] MEDS: LISINOPRIL 10 MG TAB PO SCH (09:44)
[2020-12-25] MEDS: InsuLIN REG 1unit/0.01ml Soln (100units/ml) SC SCH ×2 (09:45→22:00)
[2020-12-25 13:00] VITALS: BP 105/67
[2020-12-25 16:39] VITALS: BP 109/75
[2020-12-25] MEDS: VANCOMYCIN 1GM/250ML 250 ML IV SCH (20:50)
[2020-12-25] MEDS: MONTELUKAST SODIUM 10 MG TAB PO SCH (20:52)
[2020-12-25] MEDS: ATORVASTATIN 20 MG TAB PO SCH (20:52)
[2020-12-25] MEDS: INSULIN LANTUS (GLARGINE) 1 /0.01ml (100units/ml) SC SCH (21:13)
[2020-12-25 22:00] VITALS: BP 119/73
[2020-12-26 05:00] VITALS: BP 96/61
[2020-12-26] MEDS: PIPERACILLIN-TAZOB 3.375GM 100 ML IV SCH ×3 (05:38→22:55)
[2020-12-26] MEDS: metFORMIN HYDROCHLORIDE 500 MG TAB PO SCH ×2 (08:40→17:24)
[2020-12-26 09:00] VITALS: BP 119/74
[2020-12-26] MEDS: SODIUM CHLOR 0.9% PF (SALINE LOCK) 10ML VIAL/SYR IV SCH ×2 (10:19→22:41)
[2020-12-26] MEDS: LISINOPRIL 10 MG TAB PO SCH (10:20)
[2020-12-26] MEDS: diphenhdrAMINE HCL 50 MG/1 ML VL IV PRN ×2 (10:21→22:58)
[2020-12-26] MEDS: HYDROcodone-ACET 10/325MG TAB PO PRN ×2 (10:21→22:59)
[2020-12-26] MEDS: BACITRACIN TOP OINT 1 UD PKG TOP SCH (10:30)
[2020-12-26] MEDS: ACCU-CHEK COMFORT CURVE STRIP VI SCH ×2 (11:04→22:41)
[2020-12-26] MEDS: InsuLIN REG 1unit/0.01ml Soln (100units/ml) SC SCH ×2 (11:06→22:57)
[2020-12-26 12:48] VITALS: BP 98/62
[2020-12-26 16:39] VITALS: BP 108/63
[2020-12-26 22:00] VITALS: BP 119/70
[2020-12-26] MEDS: VANCOMYCIN 1GM/250ML 250 ML IV SCH (22:40)
[2020-12-26] MEDS: MONTELUKAST SODIUM 10 MG TAB PO SCH (22:41)
[2020-12-26] MEDS: ATORVASTATIN 20 MG TAB PO SCH (22:41)
[2020-12-26] MEDS: INSULIN LANTUS (GLARGINE) 1 /0.01ml (100units/ml) SC SCH (22:57)
[2020-12-27 05:16] VITALS: BP 112/64
[2020-12-27] MEDS: PIPERACILLIN-TAZOB 3.375GM 100 ML IV SCH ×3 (06:43→23:14)
[2020-12-27 08:33] VITALS: BP 95/58
[2020-12-27] MEDS: metFORMIN HYDROCHLORIDE 500 MG TAB PO SCH ×2 (08:41→18:26)
[2020-12-27] MEDS: LISINOPRIL 10 MG TAB PO SCH (10:00)
[2020-12-27] MEDS: HYDROcodone-ACET 10/325MG TAB PO PRN ×2 (10:15→23:17)
[2020-12-27] MEDS: ACCU-CHEK COMFORT CURVE STRIP VI SCH ×2 (10:21→23:16)
[2020-12-27] MEDS: InsuLIN REG 1unit/0.01ml Soln (100units/ml) SC SCH ×2 (10:21→23:55)
[2020-12-27] MEDS: SODIUM CHLOR 0.9% PF (SALINE LOCK) 10ML VIAL/SYR IV SCH ×2 (10:22→23:14)
[2020-12-27 12:41] VITALS: BP 135/79
[2020-12-27] MEDS: DICYCLOMINE HCL 10 MG CAP PO SCH ×3 (14:00→23:15)
[2020-12-27] MEDS: diphenhdrAMINE HCL 50 MG/1 ML VL IV PRN ×2 (14:01→23:16)
[2020-12-27 16:32] VITALS: BP 110/77
[2020-12-27] MEDS: VANCOMYCIN 1GM/250ML 250 ML IV SCH (21:40)
[2020-12-27 22:00] VITALS: BP 99/58
[2020-12-27] MEDS: ATORVASTATIN 20 MG TAB PO SCH (23:15)
[2020-12-27] MEDS: MONTELUKAST SODIUM 10 MG TAB PO SCH (23:15)
[2020-12-27] MEDS: INSULIN LANTUS (GLARGINE) 1 /0.01ml (100units/ml) SC SCH (23:57)
[2020-12-28 05:00] VITALS: BP 94/56
[2020-12-28] MEDS: PIPERACILLIN-TAZOB 3.375GM 100 ML IV SCH ×3 (06:33→22:49)
[2020-12-28] MEDS: DICYCLOMINE HCL 10 MG CAP PO SCH ×4 (06:33→22:49)
[2020-12-28 08:36] VITALS: BP 110/63
[2020-12-28] MEDS: diphenhdrAMINE HCL 50 MG/1 ML VL IV PRN ×3 (10:08→22:50)
[2020-12-28] MEDS: HYDROcodone-ACET 10/325MG TAB PO PRN ×3 (10:08→22:51)
[2020-12-28] MEDS: metFORMIN HYDROCHLORIDE 500 MG TAB PO SCH ×2 (10:16→18:05)
[2020-12-28] MEDS: SODIUM CHLOR 0.9% PF (SALINE LOCK) 10ML VIAL/SYR IV SCH ×2 (10:17→22:48)
[2020-12-28] MEDS: LISINOPRIL 10 MG TAB PO SCH (10:17)
[2020-12-28] MEDS: BACITRACIN TOP OINT 1 UD PKG TOP SCH (10:18)
[2020-12-28] MEDS: ACCU-CHEK COMFORT CURVE STRIP VI SCH ×2 (10:18→22:50)
[2020-12-28] MEDS: InsuLIN REG 1unit/0.01ml Soln (100units/ml) SC SCH ×2 (10:24→22:53)
[2020-12-28 12:36] VITALS: BP 109/68
[2020-12-28 16:43] VITALS: BP 108/73
[2020-12-28] MEDS: VANCOMYCIN 1GM/250ML 250 ML IV SCH (21:51)
[2020-12-28 22:00] VITALS: BP 97/55
[2020-12-28] MEDS: ATORVASTATIN 20 MG TAB PO SCH (22:49)
[2020-12-28] MEDS: MONTELUKAST SODIUM 10 MG TAB PO SCH (22:50)
[2020-12-28] MEDS: INSULIN LANTUS (GLARGINE) 1 /0.01ml (100units/ml) SC SCH (22:53)
[2020-12-29 05:00] VITALS: BP 92/55
[2020-12-29] MEDS: DICYCLOMINE HCL 10 MG CAP PO SCH ×4 (06:15→22:15)
[2020-12-29] MEDS: PIPERACILLIN-TAZOB 3.375GM 100 ML IV SCH ×2 (06:15→14:00)
[2020-12-29] MEDS: HYDROcodone-ACET 10/325MG TAB PO PRN ×3 (06:16→23:07)
[2020-12-29 09:14] VITALS: BP 110/73
[2020-12-29] MEDS: metFORMIN HYDROCHLORIDE 500 MG TAB PO SCH ×2 (09:54→18:00)
[2020-12-29] MEDS: SODIUM CHLOR 0.9% PF (SALINE LOCK) 10ML VIAL/SYR IV SCH ×2 (09:55→22:14)
[2020-12-29] MEDS: ACCU-CHEK COMFORT CURVE STRIP VI SCH ×2 (09:56→22:17)
[2020-12-29] MEDS: LISINOPRIL 10 MG TAB PO SCH (09:56)
[2020-12-29] MEDS: InsuLIN REG 1unit/0.01ml Soln (100units/ml) SC SCH ×2 (09:57→22:30)
[2020-12-29] MEDS: diphenhdrAMINE HCL 50 MG/1 ML VL IV PRN ×2 (09:57→22:54)
[2020-12-29 12:37] VITALS: BP 102/62
[2020-12-29 17:26] VITALS: BP 125/59
[2020-12-29 21:40] LABS: BUN/Creatinine Ratio 11.3; Calcium 8.9 mg/dL (8.5-10.1); Potassium 4.9 mmol/L (3.5-5.1)
[2020-12-29 22:00] VITALS: BP 102/61
[2020-12-29] MEDS: VANCOMYCIN 1GM/250ML 250 ML IV SCH (22:13)
[2020-12-29] MEDS: MONTELUKAST SODIUM 10 MG TAB PO SCH (22:16)
[2020-12-29] MEDS: ATORVASTATIN 20 MG TAB PO SCH (22:16)
[2020-12-29] MEDS: INSULIN LANTUS (GLARGINE) 1 /0.01ml (100units/ml) SC SCH (22:40)
[2020-12-30] MEDS ORDERED: VANCOMYCIN 1GM/250ML 250 ML IV SCH
[2020-12-30] MEDS: PIPERACILLIN-TAZOB 3.375GM 100 ML IV SCH ×3 (03:30→18:32)
[2020-12-30 05:00] VITALS: BP 98/56
[2020-12-30] MEDS: DICYCLOMINE HCL 10 MG CAP PO SCH ×3 (07:00→22:19)
[2020-12-30 09:00] VITALS: BP 108/57
[2020-12-30] MEDS: metFORMIN HYDROCHLORIDE 500 MG TAB PO SCH ×2 (10:14→18:01)
[2020-12-30] MEDS: SODIUM CHLOR 0.9% PF (SALINE LOCK) 10ML VIAL/SYR IV SCH ×2 (10:14→22:18)
[2020-12-30] MEDS: ACCU-CHEK COMFORT CURVE STRIP VI SCH ×2 (10:15→22:29)
[2020-12-30] MEDS: LISINOPRIL 10 MG TAB PO SCH (10:15)
[2020-12-30] MEDS: ENOXAPARIN SOD 40 MG/0.4 ML SYRINGE SC SCH (10:15)
[2020-12-30] MEDS: diphenhdrAMINE HCL 50 MG/1 ML VL IV PRN ×3 (10:16→22:18)
[2020-12-30] MEDS: HYDROcodone-ACET 10/325MG TAB PO PRN ×3 (10:17→22:16)
[2020-12-30] MEDS: InsuLIN REG 1unit/0.01ml Soln (100units/ml) SC SCH ×2 (10:36→22:36)
[2020-12-30] MEDS: BACITRACIN TOP OINT 1 UD PKG TOP SCH (12:17)
[2020-12-30 13:00] VITALS: BP 105/64
[2020-12-30] MEDS ORDERED: CATHFLO ACTIVASE (ALTEPLASE) 2 MG VIAL IV ONE (15:30)
[2020-12-30 17:00] VITALS: BP 111/60
[2020-12-30 22:04] VITALS: BP 117/70
[2020-12-30] MEDS: MONTELUKAST SODIUM 10 MG TAB PO SCH (22:19)
[2020-12-30] MEDS: ATORVASTATIN 20 MG TAB PO SCH (22:19)
[2020-12-30] MEDS: INSULIN LANTUS (GLARGINE) 1 /0.01ml (100units/ml) SC SCH (22:37)
[2020-12-31] MEDS: PIPERACILLIN-TAZOB 3.375GM 100 ML IV SCH ×3 (03:40→21:24)
[2020-12-31 05:05] VITALS: BP 107/64
[2020-12-31] MEDS: DICYCLOMINE HCL 10 MG CAP PO SCH ×3 (06:30→21:24)
[2020-12-31] MEDS: diphenhdrAMINE HCL 50 MG/1 ML VL IV PRN ×3 (08:24→22:22)
[2020-12-31] MEDS: LISINOPRIL 10 MG TAB PO SCH (08:25)
[2020-12-31] MEDS: HYDROcodone-ACET 10/325MG TAB PO PRN ×3 (08:25→21:57)
[2020-12-31] MEDS: ENOXAPARIN SOD 40 MG/0.4 ML SYRINGE SC SCH (08:26)
[2020-12-31] MEDS: SODIUM CHLOR 0.9% PF (SALINE LOCK) 10ML VIAL/SYR IV SCH ×2 (08:26→21:25)
[2020-12-31] MEDS: metFORMIN HYDROCHLORIDE 500 MG TAB PO SCH ×2 (08:26→18:53)
[2020-12-31 08:56] VITALS: BP 134/72
[2020-12-31] MEDS: ACCU-CHEK COMFORT CURVE STRIP VI SCH ×2 (09:24→21:58)
[2020-12-31] MEDS: InsuLIN REG 1unit/0.01ml Soln (100units/ml) SC SCH ×2 (09:25→21:59)
[2020-12-31] MEDS: VANCOMYCIN 1GM/250ML 250 ML IV SCH (10:00)
[2020-12-31 12:53] VITALS: BP 125/90
[2020-12-31 16:40] VITALS: BP 115/71
[2020-12-31] MEDS: MONTELUKAST SODIUM 10 MG TAB PO SCH (21:24)
[2020-12-31] MEDS: ATORVASTATIN 20 MG TAB PO SCH (21:25)
[2020-12-31] MEDS: INSULIN LANTUS (GLARGINE) 1 /0.01ml (100units/ml) SC SCH (21:58)
[2020-12-31 22:25] VITALS: BP 121/68
[2021-01-01] MEDS: PIPERACILLIN-TAZOB 3.375GM 100 ML IV SCH ×3 (04:01→20:17)
[2021-01-01 05:10] VITALS: BP 110/59
[2021-01-01] MEDS: HYDROcodone-ACET 10/325MG TAB PO PRN ×5 (05:56→22:44)
[2021-01-01] MEDS: DICYCLOMINE HCL 10 MG CAP PO SCH ×3 (05:57→21:28)
[2021-01-01 09:00] VITALS: BP 129/75
[2021-01-01] MEDS: SODIUM CHLOR 0.9% PF (SALINE LOCK) 10ML VIAL/SYR IV SCH ×2 (09:40→21:29)
[2021-01-01] MEDS: metFORMIN HYDROCHLORIDE 500 MG TAB PO SCH ×2 (09:40→18:26)
[2021-01-01] MEDS: LISINOPRIL 10 MG TAB PO SCH (09:42)
[2021-01-01] MEDS: BACITRACIN TOP OINT 1 UD PKG TOP SCH (09:42)
[2021-01-01] MEDS: ENOXAPARIN SOD 40 MG/0.4 ML SYRINGE SC SCH (09:42)
[2021-01-01] MEDS: ACCU-CHEK COMFORT CURVE STRIP VI SCH ×2 (09:43→21:49)
[2021-01-01] MEDS: InsuLIN REG 1unit/0.01ml Soln (100units/ml) SC SCH ×2 (09:53→21:50)
[2021-01-01] MEDS: diphenhdrAMINE HCL 50 MG/1 ML VL IV PRN ×4 (09:54→22:44)
[2021-01-01] MEDS: VANCOMYCIN 1GM/250ML 250 ML IV SCH (11:00)
[2021-01-01 13:00] VITALS: BP 125/75
[2021-01-01 16:39] VITALS: BP 101/66
[2021-01-01] MEDS: ATORVASTATIN 20 MG TAB PO SCH (21:29)
[2021-01-01] MEDS: MONTELUKAST SODIUM 10 MG TAB PO SCH (21:29)
[2021-01-01] MEDS: INSULIN LANTUS (GLARGINE) 1 /0.01ml (100units/ml) SC SCH (21:49)
[2021-01-01 22:16] VITALS: BP 121/66
[2021-01-02] MEDS: PIPERACILLIN-TAZOB 3.375GM 100 ML IV SCH ×3 (03:19→20:08)
[2021-01-02 04:59] VITALS: BP 106/65
[2021-01-02] MEDS: DICYCLOMINE HCL 10 MG CAP PO SCH ×3 (05:26→22:39)
[2021-01-02 08:15] VITALS: BP 110/62
[2021-01-02] MEDS: metFORMIN HYDROCHLORIDE 500 MG TAB PO SCH ×2 (08:32→17:40)
[2021-01-02] MEDS: diphenhdrAMINE HCL 50 MG/1 ML VL IV PRN ×3 (08:49→20:08)
[2021-01-02] MEDS: HYDROcodone-ACET 10/325MG TAB PO PRN ×3 (08:49→20:09)
[2021-01-02 09:19] VITALS: BP 110/62
[2021-01-02] MEDS: VANCOMYCIN 1GM/250ML 250 ML IV SCH (09:59)
[2021-01-02] MEDS: SODIUM CHLOR 0.9% PF (SALINE LOCK) 10ML VIAL/SYR IV SCH ×2 (09:59→22:08)
[2021-01-02] MEDS: LISINOPRIL 10 MG TAB PO SCH (10:00)
[2021-01-02] MEDS: InsuLIN REG 1unit/0.01ml Soln (100units/ml) SC SCH ×2 (10:00→22:41)
[2021-01-02] MEDS: ENOXAPARIN SOD 40 MG/0.4 ML SYRINGE SC SCH (10:01)
[2021-01-02] MEDS: ACCU-CHEK COMFORT CURVE STRIP VI SCH ×2 (10:01→22:39)
[2021-01-02 13:00] VITALS: BP 107/62
[2021-01-02 17:19] VITALS: BP 112/75
[2021-01-02 22:00] VITALS: BP 115/66
[2021-01-02] MEDS: HYDROCORTISONE 2.5% TOPICAL CREAM 30GM TUBE TOP SCH (22:39)
[2021-01-02] MEDS: MONTELUKAST SODIUM 10 MG TAB PO SCH (22:39)
[2021-01-02] MEDS: ATORVASTATIN 20 MG TAB PO SCH (22:39)
[2021-01-02] MEDS: INSULIN LANTUS (GLARGINE) 1 /0.01ml (100units/ml) SC SCH (22:40)
[2021-01-03] MEDS: diphenhdrAMINE HCL 50 MG/1 ML VL IV PRN ×4 (00:11→14:35)
[2021-01-03] MEDS: HYDROcodone-ACET 10/325MG TAB PO PRN ×4 (00:12→14:35)
[2021-01-03] MEDS: VANCOMYCIN 1GM/250ML 250 ML IV SCH ×2 (03:31→22:08)
[2021-01-03 05:00] VITALS: BP 101/58
[2021-01-03] MEDS: PIPERACILLIN-TAZOB 3.375GM 100 ML IV SCH ×3 (05:06→20:43)
[2021-01-03] MEDS: HYDROCORTISONE 2.5% TOPICAL CREAM 30GM TUBE TOP SCH ×3 (05:58→21:54)
[2021-01-03] MEDS: DICYCLOMINE HCL 10 MG CAP PO SCH ×3 (05:58→21:54)
[2021-01-03] MEDS: metFORMIN HYDROCHLORIDE 500 MG TAB PO SCH ×2 (08:10→17:40)
[2021-01-03 08:15] VITALS: BP 107/59
[2021-01-03 09:02] VITALS: BP 107/59
[2021-01-03] MEDS: InsuLIN REG 1unit/0.01ml Soln (100units/ml) SC SCH ×2 (10:00→22:48)
[2021-01-03] MEDS: SODIUM CHLOR 0.9% PF (SALINE LOCK) 10ML VIAL/SYR IV SCH ×2 (10:32→21:54)
[2021-01-03] MEDS: LISINOPRIL 10 MG TAB PO SCH (10:32)
[2021-01-03] MEDS: ACCU-CHEK COMFORT CURVE STRIP VI SCH ×2 (10:33→22:43)
[2021-01-03] MEDS: ENOXAPARIN SOD 40 MG/0.4 ML SYRINGE SC SCH (10:33)
[2021-01-03] MEDS: BACITRACIN TOP OINT 1 UD PKG TOP SCH (10:33)
[2021-01-03 12:35] VITALS: BP 96/69
[2021-01-03 16:18] VITALS: BP 124/78
[2021-01-03 21:52] VITALS: BP 119/73
[2021-01-03] MEDS: MONTELUKAST SODIUM 10 MG TAB PO SCH (21:54)
[2021-01-03] MEDS: ATORVASTATIN 20 MG TAB PO SCH (21:54)
[2021-01-03] MEDS: INSULIN LANTUS (GLARGINE) 1 /0.01ml (100units/ml) SC SCH (22:47)
[2021-01-04] VITALS (7 sets, daily range): BP systolic 96–126; BP diastolic 57–75
[2021-01-04] MEDS: PIPERACILLIN-TAZOB 3.375GM 100 ML IV SCH ×3 (03:31→20:15)
[2021-01-04] MEDS: HYDROCORTISONE 2.5% TOPICAL CREAM 30GM TUBE TOP SCH ×3 (06:12→22:46)
[2021-01-04] MEDS: DICYCLOMINE HCL 10 MG CAP PO SCH ×3 (06:16→22:45)
[2021-01-04] MEDS: HYDROcodone-ACET 10/325MG TAB PO PRN ×3 (06:18→23:14)
[2021-01-04] MEDS: metFORMIN HYDROCHLORIDE 500 MG TAB PO SCH ×2 (08:26→17:31)
[2021-01-04] MEDS: diphenhdrAMINE HCL 50 MG/1 ML VL IV PRN ×3 (08:26→23:13)
[2021-01-04] MEDS: LISINOPRIL 10 MG TAB PO SCH (10:16)
[2021-01-04] MEDS: SODIUM CHLOR 0.9% PF (SALINE LOCK) 10ML VIAL/SYR IV SCH ×2 (10:16→22:45)
[2021-01-04] MEDS: ENOXAPARIN SOD 40 MG/0.4 ML SYRINGE SC SCH (10:17)
[2021-01-04] MEDS: ACCU-CHEK COMFORT CURVE STRIP VI SCH ×2 (10:17→22:46)
[2021-01-04] MEDS: InsuLIN REG 1unit/0.01ml Soln (100units/ml) SC SCH ×2 (10:26→23:15)
[2021-01-04] MEDS: VANCOMYCIN 1GM/250ML 250 ML IV SCH (16:29)
[2021-01-04] MEDS: MONTELUKAST SODIUM 10 MG TAB PO SCH (22:45)
[2021-01-04] MEDS: ATORVASTATIN 20 MG TAB PO SCH (22:45)
[2021-01-04] MEDS: INSULIN LANTUS (GLARGINE) 1 /0.01ml (100units/ml) SC SCH (22:55)
[2021-01-05] VITALS (7 sets, daily range): BP systolic 104–159; BP diastolic 60–77
[2021-01-05] MEDS: PIPERACILLIN-TAZOB 3.375GM 100 ML IV SCH ×3 (04:00→20:22)
[2021-01-05] MEDS: DICYCLOMINE HCL 10 MG CAP PO SCH ×3 (06:10→22:00)
[2021-01-05] MEDS: HYDROCORTISONE 2.5% TOPICAL CREAM 30GM TUBE TOP SCH ×3 (06:10→22:00)
[2021-01-05] MEDS: metFORMIN HYDROCHLORIDE 500 MG TAB PO SCH ×2 (07:55→17:54)
[2021-01-05] MEDS: VANCOMYCIN 1GM/250ML 250 ML IV SCH (07:55)
[2021-01-05] MEDS: SODIUM CHLOR 0.9% PF (SALINE LOCK) 10ML VIAL/SYR IV SCH ×2 (10:17→22:00)
[2021-01-05] MEDS: InsuLIN REG 1unit/0.01ml Soln (100units/ml) SC SCH ×2 (10:17→22:00)
[2021-01-05] MEDS: ACCU-CHEK COMFORT CURVE STRIP VI SCH ×2 (10:18→22:00)
[2021-01-05] MEDS: BACITRACIN TOP OINT 1 UD PKG TOP SCH (10:18)
[2021-01-05] MEDS: LISINOPRIL 10 MG TAB PO SCH (10:18)
[2021-01-05] MEDS: ENOXAPARIN SOD 40 MG/0.4 ML SYRINGE SC SCH (10:18)
[2021-01-05] MEDS: diphenhdrAMINE HCL 50 MG/1 ML VL IV PRN (10:22)
[2021-01-05] MEDS: HYDROcodone-ACET 10/325MG TAB PO PRN (10:23)
[2021-01-05] MEDS: MONTELUKAST SODIUM 10 MG TAB PO SCH (22:00)
[2021-01-05] MEDS: ATORVASTATIN 20 MG TAB PO SCH (22:00)
[2021-01-05] MEDS: INSULIN LANTUS (GLARGINE) 1 /0.01ml (100units/ml) SC SCH (22:43)
[2021-01-06] MEDS: PIPERACILLIN-TAZOB 3.375GM 100 ML IV SCH ×3 (03:44→23:04)
[2021-01-06 05:00] VITALS: BP 102/63
[2021-01-06] MEDS: DICYCLOMINE HCL 10 MG CAP PO SCH ×3 (06:02→22:29)
[2021-01-06] MEDS: HYDROCORTISONE 2.5% TOPICAL CREAM 30GM TUBE TOP SCH ×3 (06:03→23:04)
[2021-01-06 08:00] VITALS: BP 130/72
[2021-01-06 08:48] VITALS: BP 130/72
[2021-01-06] MEDS: InsuLIN REG 1unit/0.01ml Soln (100units/ml) SC SCH ×2 (10:00→22:31)
[2021-01-06] MEDS: ACCU-CHEK COMFORT CURVE STRIP VI SCH ×2 (10:00→22:00)
[2021-01-06] MEDS: SODIUM CHLOR 0.9% PF (SALINE LOCK) 10ML VIAL/SYR IV SCH ×2 (10:00→23:05)
[2021-01-06] MEDS: metFORMIN HYDROCHLORIDE 500 MG TAB PO SCH ×2 (11:40→18:48)
[2021-01-06] MEDS: LISINOPRIL 10 MG TAB PO SCH (11:40)
[2021-01-06] MEDS: ENOXAPARIN SOD 40 MG/0.4 ML SYRINGE SC SCH (11:41)
[2021-01-06] MEDS: diphenhdrAMINE HCL 50 MG/1 ML VL IV PRN ×2 (12:25→23:05)
[2021-01-06] MEDS: HYDROcodone-ACET 10/325MG TAB PO PRN ×2 (12:25→23:06)
[2021-01-06 12:28] VITALS: BP 117/71
[2021-01-06] MEDS: VANCOMYCIN 1GM/250ML 250 ML IV SCH ×2 (16:00)
[2021-01-06 16:42] VITALS: BP 118/67
[2021-01-06 22:00] VITALS: BP 117/69
[2021-01-06] MEDS: INSULIN LANTUS (GLARGINE) 1 /0.01ml (100units/ml) SC SCH ×2 (22:00→23:04)
[2021-01-06] MEDS: ATORVASTATIN 20 MG TAB PO SCH ×2 (22:29→23:06)
[2021-01-06] MEDS: MONTELUKAST SODIUM 10 MG TAB PO SCH ×2 (22:30→23:07)
[2021-01-07 05:00] VITALS: BP 103/62
[2021-01-07] MEDS: DICYCLOMINE HCL 10 MG CAP PO SCH ×3 (05:24→22:11)
[2021-01-07] MEDS: VANCOMYCIN 1GM/250ML 250 ML IV SCH ×2 (05:24→20:11)
[2021-01-07] MEDS: HYDROCORTISONE 2.5% TOPICAL CREAM 30GM TUBE TOP SCH ×3 (05:26→22:02)
[2021-01-07 05:51] LABS: Basophils # (auto) 0.1 10 ^3/uL (0-0.2); Basophils % (auto) 3.1 % (0.0-2.0); Eosinophils # (auto) 0.5 10 ^3/uL (0-0.8); Hemoglobin 10.9 g/dL (13.5-17.5); Lymphocytes # (auto) 1.6 10 ^3/uL (0.4-5.4); Lymphocytes % (auto) 34.3 % (10.0-50.0); Mean Corpuscular Hemoglobin 28.7 pg (28.0-32.0); Mean Corpuscular Hgb Conc. 34.2 g/dL (32.0-36.0); Mean Corpuscular Volume 84.1 fL (80.0-100.0); Monocytes # (auto) 0.5 10 ^3/uL (0-1.3); Monocytes % (auto) 10.4 % (0.0-12.0); Neutrophils % (auto) 42.2 % (37.0-80.0); Nucleated Red Blood Cells % 0.1 %; Red Blood Cells 3.81 10^6/uL (4.5-5.90); Red Cell Distribution Width 14.7 % (11.8-14.3); White Blood Cell 4.7 10^3/uL (4.4-10.8)
[2021-01-07 08:00] VITALS: BP 117/72
[2021-01-07] MEDS: PIPERACILLIN-TAZOB 3.375GM 100 ML IV SCH ×2 (08:00→16:00)
[2021-01-07 09:00] VITALS: BP 117/72
[2021-01-07] MEDS: InsuLIN REG 1unit/0.01ml Soln (100units/ml) SC SCH ×2 (10:00→22:02)
[2021-01-07] MEDS: metFORMIN HYDROCHLORIDE 500 MG TAB PO SCH ×2 (10:14→18:00)
[2021-01-07] MEDS: SODIUM CHLOR 0.9% PF (SALINE LOCK) 10ML VIAL/SYR IV SCH ×2 (10:15→22:01)
[2021-01-07] MEDS: LISINOPRIL 10 MG TAB PO SCH (10:15)
[2021-01-07] MEDS: ENOXAPARIN SOD 40 MG/0.4 ML SYRINGE SC SCH (10:17)
[2021-01-07] MEDS: BACITRACIN TOP OINT 1 UD PKG TOP SCH (10:18)
[2021-01-07] MEDS: ACCU-CHEK COMFORT CURVE STRIP VI SCH ×2 (10:55→22:02)
[2021-01-07] MEDS: diphenhdrAMINE HCL 50 MG/1 ML VL IV PRN ×3 (10:57→22:20)
[2021-01-07] MEDS: HYDROcodone-ACET 10/325MG TAB PO PRN ×3 (10:57→22:19)
[2021-01-07 12:25] VITALS: BP 130/76
[2021-01-07 17:00] VITALS: BP 117/72
[2021-01-07 22:00] VITALS: BP 103/59
[2021-01-07] MEDS: MONTELUKAST SODIUM 10 MG TAB PO SCH (22:03)
[2021-01-07] MEDS: INSULIN LANTUS (GLARGINE) 1 /0.01ml (100units/ml) SC SCH (22:03)
[2021-01-07] MEDS: ATORVASTATIN 20 MG TAB PO SCH (22:03)
[2021-01-08] MEDS: PIPERACILLIN-TAZOB 3.375GM 100 ML IV SCH ×3 (00:17→17:17)
[2021-01-08 05:12] VITALS: BP 107/66
[2021-01-08] MEDS: DICYCLOMINE HCL 10 MG CAP PO SCH ×3 (06:22→21:07)
[2021-01-08] MEDS: HYDROCORTISONE 2.5% TOPICAL CREAM 30GM TUBE TOP SCH ×3 (06:22→21:34)
[2021-01-08] MEDS: LISINOPRIL 10 MG TAB PO SCH (08:38)
[2021-01-08] MEDS: metFORMIN HYDROCHLORIDE 500 MG TAB PO SCH ×2 (08:39→17:26)
[2021-01-08] MEDS: HYDROcodone-ACET 10/325MG TAB PO PRN ×3 (08:39→21:34)
[2021-01-08] MEDS: diphenhdrAMINE HCL 50 MG/1 ML VL IV PRN (08:39)
[2021-01-08] MEDS: ENOXAPARIN SOD 40 MG/0.4 ML SYRINGE SC SCH (08:40)
[2021-01-08 09:00] VITALS: BP 107/68
[2021-01-08] MEDS: ACCU-CHEK COMFORT CURVE STRIP VI SCH ×2 (10:39→21:35)
[2021-01-08] MEDS: SODIUM CHLOR 0.9% PF (SALINE LOCK) 10ML VIAL/SYR IV SCH ×2 (10:39→21:08)
[2021-01-08] MEDS: InsuLIN REG 1unit/0.01ml Soln (100units/ml) SC SCH ×2 (10:40→21:32)
[2021-01-08] MEDS: VANCOMYCIN 1GM/250ML 250 ML IV SCH ×2 (12:43→23:31)
[2021-01-08 13:00] VITALS: BP 111/68
[2021-01-08 16:59] VITALS: BP 150/75
[2021-01-08] MEDS: MONTELUKAST SODIUM 10 MG TAB PO SCH (21:06)
[2021-01-08] MEDS: ATORVASTATIN 20 MG TAB PO SCH (21:07)
[2021-01-08] MEDS: INSULIN LANTUS (GLARGINE) 1 /0.01ml (100units/ml) SC SCH (21:33)
[2021-01-08 21:34] VITALS: BP 127/76
[2021-01-09] MEDS: PIPERACILLIN-TAZOB 3.375GM 100 ML IV SCH ×4 (00:53→23:45)
[2021-01-09 04:32] VITALS: BP 103/58
[2021-01-09] MEDS: HYDROCORTISONE 2.5% TOPICAL CREAM 30GM TUBE TOP SCH ×3 (05:26→23:27)
[2021-01-09] MEDS: DICYCLOMINE HCL 10 MG CAP PO SCH ×3 (05:26→23:27)
[2021-01-09] MEDS: metFORMIN HYDROCHLORIDE 500 MG TAB PO SCH ×2 (08:00→17:47)
[2021-01-09] MEDS: HYDROcodone-ACET 10/325MG TAB PO PRN ×2 (08:04→21:20)
[2021-01-09 08:51] VITALS: BP 140/87
[2021-01-09] MEDS: ENOXAPARIN SOD 40 MG/0.4 ML SYRINGE SC SCH (09:34)
[2021-01-09] MEDS: LISINOPRIL 10 MG TAB PO SCH (09:35)
[2021-01-09] MEDS: ACCU-CHEK COMFORT CURVE STRIP VI SCH ×2 (09:41→23:27)
[2021-01-09] MEDS: InsuLIN REG 1unit/0.01ml Soln (100units/ml) SC SCH ×2 (09:42→21:18)
[2021-01-09] MEDS: BACITRACIN TOP OINT 1 UD PKG TOP SCH (10:08)
[2021-01-09] MEDS: diphenhdrAMINE HCL 50 MG/1 ML VL IV PRN ×2 (11:17→21:20)
[2021-01-09 13:00] VITALS: BP 114/75
[2021-01-09] MEDS: VANCOMYCIN 1GM/250ML 250 ML IV SCH (15:20)
[2021-01-09 17:00] VITALS: BP 138/73
[2021-01-09] MEDS: INSULIN LANTUS (GLARGINE) 1 /0.01ml (100units/ml) SC SCH (21:17)
[2021-01-09] MEDS: MONTELUKAST SODIUM 10 MG TAB PO SCH (21:20)
[2021-01-09] MEDS: ATORVASTATIN 20 MG TAB PO SCH (21:20)
[2021-01-10] MEDS: VANCOMYCIN 1GM/250ML 250 ML IV SCH ×2 (04:20→18:18)
[2021-01-10 05:00] VITALS: BP 115/67
[2021-01-10] MEDS: HYDROCORTISONE 2.5% TOPICAL CREAM 30GM TUBE TOP SCH ×3 (06:52→22:41)
[2021-01-10] MEDS: DICYCLOMINE HCL 10 MG CAP PO SCH ×3 (06:52→22:21)
[2021-01-10] MEDS: metFORMIN HYDROCHLORIDE 500 MG TAB PO SCH ×2 (07:30→18:18)
[2021-01-10 08:41] VITALS: BP 130/73
[2021-01-10] MEDS: InsuLIN REG 1unit/0.01ml Soln (100units/ml) SC SCH ×2 (10:00→22:23)
[2021-01-10] MEDS: ACCU-CHEK COMFORT CURVE STRIP VI SCH ×2 (10:00→22:24)
[2021-01-10] MEDS: PIPERACILLIN-TAZOB 3.375GM 100 ML IV SCH ×2 (10:47→16:00)
[2021-01-10] MEDS: LISINOPRIL 10 MG TAB PO SCH (10:49)
[2021-01-10] MEDS: ENOXAPARIN SOD 40 MG/0.4 ML SYRINGE SC SCH (10:50)
[2021-01-10] MEDS: diphenhdrAMINE HCL 50 MG/1 ML VL IV PRN ×2 (10:50→22:25)
[2021-01-10 13:30] VITALS: BP 127/76
[2021-01-10 16:22] VITALS: BP 133/79
[2021-01-10 20:00] VITALS: BP 130/82
[2021-01-10] MEDS: ATORVASTATIN 20 MG TAB PO SCH (22:21)
[2021-01-10] MEDS: INSULIN LANTUS (GLARGINE) 1 /0.01ml (100units/ml) SC SCH (22:24)
[2021-01-10] MEDS: HYDROcodone-ACET 10/325MG TAB PO PRN (22:25)
[2021-01-11] VITALS (7 sets, daily range): BP systolic 107–140; BP diastolic 61–96
[2021-01-11] MEDS: DICYCLOMINE HCL 10 MG CAP PO SCH ×3 (05:52→21:21)
[2021-01-11] MEDS: HYDROCORTISONE 2.5% TOPICAL CREAM 30GM TUBE TOP SCH ×3 (05:53→21:23)
[2021-01-11] MEDS: metFORMIN HYDROCHLORIDE 500 MG TAB PO SCH ×2 (08:00→18:00)
[2021-01-11] MEDS ORDERED: PIPERACILLIN-TAZOB 3.375GM 100 ML IV ONE (08:00)
[2021-01-11] MEDS ORDERED: VANCOMYCIN PER PHARMACY 0 MG IV SCH (08:00)
[2021-01-11] MEDS: diphenhdrAMINE HCL 50 MG/1 ML VL IV PRN ×2 (09:50→21:22)
[2021-01-11] MEDS: HYDROcodone-ACET 10/325MG TAB PO PRN ×2 (09:50→21:21)
[2021-01-11] MEDS: InsuLIN REG 1unit/0.01ml Soln (100units/ml) SC SCH ×2 (10:00→21:56)
[2021-01-11] MEDS: LISINOPRIL 10 MG TAB PO SCH (11:35)
[2021-01-11] MEDS: ACCU-CHEK COMFORT CURVE STRIP VI SCH ×2 (11:36→21:22)
[2021-01-11] MEDS: VANCOMYCIN 1GM/250ML 250 ML IV SCH (11:47)
[2021-01-11] MEDS ORDERED: PIPERACILLIN-TAZOB 3.375GM 100 ML IV SCH (14:00)
[2021-01-11] MEDS: BACITRACIN TOP OINT 1 UD PKG TOP SCH (17:53)
[2021-01-11] MEDS: ATORVASTATIN 20 MG TAB PO SCH (21:21)
[2021-01-11] MEDS: INSULIN LANTUS (GLARGINE) 1 /0.01ml (100units/ml) SC SCH (21:55)
[2021-01-11] MEDS: PIPERACILLIN-TAZOB 3.375GM 100 ML IV SCH ×2 (21:55)
[2021-01-12] MEDS: VANCOMYCIN 1GM/250ML 250 ML IV SCH ×2 (02:20→16:26)
[2021-01-12 05:00] VITALS: BP 108/68
[2021-01-12] MEDS ORDERED: VANCOMYCIN 1GM/250ML 250 ML IV SCH (05:00)
[2021-01-12] MEDS: PIPERACILLIN-TAZOB 3.375GM 100 ML IV SCH ×3 (06:06→22:20)
[2021-01-12] MEDS: DICYCLOMINE HCL 10 MG CAP PO SCH ×3 (06:07→22:20)
[2021-01-12] MEDS: HYDROCORTISONE 2.5% TOPICAL CREAM 30GM TUBE TOP SCH ×3 (06:07→22:20)
[2021-01-12 08:00] VITALS: BP 107/61
[2021-01-12] MEDS: metFORMIN HYDROCHLORIDE 500 MG TAB PO SCH ×2 (08:18→19:12)
[2021-01-12] MEDS: LISINOPRIL 10 MG TAB PO SCH (08:54)
[2021-01-12 09:00] VITALS: BP 154/85
[2021-01-12] MEDS: InsuLIN REG 1unit/0.01ml Soln (100units/ml) SC SCH ×2 (10:00→22:26)
[2021-01-12] MEDS: diphenhdrAMINE HCL 50 MG/1 ML VL IV PRN ×2 (12:52→22:27)
[2021-01-12] MEDS: HYDROcodone-ACET 10/325MG TAB PO PRN ×2 (12:53→22:27)
[2021-01-12 13:00] VITALS: BP 150/75
[2021-01-12] MEDS: ACCU-CHEK COMFORT CURVE STRIP VI SCH ×2 (13:22→22:20)
[2021-01-12 17:00] VITALS: BP 143/82
[2021-01-12 22:18] VITALS: BP 133/77
[2021-01-12] MEDS: ATORVASTATIN 20 MG TAB PO SCH (22:20)
[2021-01-12] MEDS: INSULIN LANTUS (GLARGINE) 1 /0.01ml (100units/ml) SC SCH (22:26)
[2021-01-13] MEDS: VANCOMYCIN 1GM/250ML 250 ML IV SCH ×2 (04:47→18:39)
[2021-01-13 05:00] VITALS: BP 102/60
[2021-01-13] MEDS: DICYCLOMINE HCL 10 MG CAP PO SCH ×3 (06:13→21:31)
[2021-01-13] MEDS: PIPERACILLIN-TAZOB 3.375GM 100 ML IV SCH ×3 (06:13→21:31)
[2021-01-13] MEDS: HYDROCORTISONE 2.5% TOPICAL CREAM 30GM TUBE TOP SCH ×3 (06:14→21:54)
[2021-01-13] MEDS: metFORMIN HYDROCHLORIDE 500 MG TAB PO SCH ×2 (08:15→18:00)
[2021-01-13] MEDS: diphenhdrAMINE HCL 50 MG/1 ML VL IV PRN ×3 (08:16→21:43)
[2021-01-13] MEDS: HYDROcodone-ACET 10/325MG TAB PO PRN ×2 (08:17→21:43)
[2021-01-13 08:54] VITALS: BP 117/71
[2021-01-13] MEDS: LISINOPRIL 10 MG TAB PO SCH (10:00)
[2021-01-13] MEDS: ACCU-CHEK COMFORT CURVE STRIP VI SCH ×2 (10:07→21:50)
[2021-01-13] MEDS: InsuLIN REG 1unit/0.01ml Soln (100units/ml) SC SCH ×2 (10:15→21:57)
[2021-01-13] MEDS: BACITRACIN TOP OINT 1 UD PKG TOP SCH (11:35)
[2021-01-13 13:00] VITALS: BP 132/71
[2021-01-13 17:00] VITALS: BP 129/77
[2021-01-13] MEDS: ATORVASTATIN 20 MG TAB PO SCH (21:30)
[2021-01-13] MEDS: INSULIN LANTUS (GLARGINE) 1 /0.01ml (100units/ml) SC SCH (21:56)
[2021-01-13 22:23] VITALS: BP 136/77
[2021-01-14 05:17] VITALS: BP 112/66
[2021-01-14] MEDS: PIPERACILLIN-TAZOB 3.375GM 100 ML IV SCH ×3 (05:32→22:03)
[2021-01-14] MEDS: DICYCLOMINE HCL 10 MG CAP PO SCH ×3 (05:33→22:02)
[2021-01-14] MEDS: HYDROCORTISONE 2.5% TOPICAL CREAM 30GM TUBE TOP SCH ×3 (05:33→22:02)
[2021-01-14] MEDS: metFORMIN HYDROCHLORIDE 500 MG TAB PO SCH ×2 (08:26→17:12)
[2021-01-14] MEDS: LISINOPRIL 10 MG TAB PO SCH (08:26)
[2021-01-14] MEDS: diphenhdrAMINE HCL 50 MG/1 ML VL IV PRN ×3 (08:50→22:03)
[2021-01-14] MEDS: HYDROcodone-ACET 10/325MG TAB PO PRN ×3 (08:51→22:04)
[2021-01-14 09:00] VITALS: BP 140/74
[2021-01-14] MEDS: VANCOMYCIN 1GM/250ML 250 ML IV SCH ×3 (09:00→22:26)
[2021-01-14] MEDS: ACCU-CHEK COMFORT CURVE STRIP VI SCH ×2 (10:01→22:03)
[2021-01-14] MEDS: InsuLIN REG 1unit/0.01ml Soln (100units/ml) SC SCH ×2 (10:01→21:46)
[2021-01-14 11:38] LABS: Basophils # (auto) 0.1 10 ^3/uL (0-0.2); Basophils % (auto) 1.9 % (0.0-2.0); Eosinophils # (auto) 0.3 10 ^3/uL (0-0.8); Eosinophils % (auto) 5.6 % (0.0-7.0); Hematocrit 33.8 % (41.0-53.0); Hemoglobin 11.7 g/dL (13.5-17.5); Lymphocytes # (auto) 1.8 10 ^3/uL (0.4-5.4); Lymphocytes % (auto) 37.7 % (10.0-50.0); Mean Corpuscular Hemoglobin 29.2 pg (28.0-32.0); Mean Corpuscular Hgb Conc. 34.5 g/dL (32.0-36.0); Mean Corpuscular Volume 84.6 fL (80.0-100.0); Monocytes # (auto) 0.5 10 ^3/uL (0-1.3); Monocytes % (auto) 10.7 % (0.0-12.0); Neutrophils # (auto) 2.1 10 ^3/uL (1.6-8.6); Neutrophils % (auto) 44.1 % (37.0-80.0); Nucleated Red Blood Cells % 0.1 %; Red Cell Distribution Width 14.9 % (11.8-14.3); White Blood Cell 4.8 10^3/uL (4.4-10.8)
[2021-01-14 12:00] LABS: BUN/Creatinine Ratio 10.9; Calcium 9.1 mg/dL (8.5-10.1); Potassium 3.9 mmol/L (3.5-5.1)
[2021-01-14 13:00] VITALS: BP 124/73
[2021-01-14 17:00] VITALS: BP 126/77
[2021-01-14] MEDS: INSULIN LANTUS (GLARGINE) 1 /0.01ml (100units/ml) SC SCH (21:44)
[2021-01-14] MEDS: ATORVASTATIN 20 MG TAB PO SCH (22:02)
[2021-01-14 22:16] VITALS: BP 134/68
[2021-01-15] MEDS: PIPERACILLIN-TAZOB 3.375GM 100 ML IV SCH ×3 (05:15→22:01)
[2021-01-15 05:25] VITALS: BP 124/68
[2021-01-15] MEDS: DICYCLOMINE HCL 10 MG CAP PO SCH ×3 (06:06→22:01)
[2021-01-15] MEDS: HYDROCORTISONE 2.5% TOPICAL CREAM 30GM TUBE TOP SCH ×3 (06:07→22:02)
[2021-01-15] MEDS: LISINOPRIL 10 MG TAB PO SCH (08:25)
[2021-01-15] MEDS: BACITRACIN TOP OINT 1 UD PKG TOP SCH (08:25)
[2021-01-15] MEDS: metFORMIN HYDROCHLORIDE 500 MG TAB PO SCH ×2 (08:25→17:08)
[2021-01-15] MEDS: HYDROcodone-ACET 10/325MG TAB PO PRN ×3 (08:25→22:12)
[2021-01-15 08:51] VITALS: BP 157/70
[2021-01-15] MEDS: ACCU-CHEK COMFORT CURVE STRIP VI SCH ×2 (11:19→22:02)
[2021-01-15] MEDS: InsuLIN REG 1unit/0.01ml Soln (100units/ml) SC SCH ×2 (11:21→21:59)
[2021-01-15] MEDS: diphenhdrAMINE HCL 50 MG/1 ML VL IV PRN ×2 (11:45→22:13)
[2021-01-15 13:00] VITALS: BP 132/69
[2021-01-15] MEDS: VANCOMYCIN 1GM/250ML 250 ML IV SCH (13:38)
[2021-01-15 16:51] VITALS: BP 119/69
[2021-01-15 22:00] VITALS: BP 112/68
[2021-01-15] MEDS: INSULIN LANTUS (GLARGINE) 1 /0.01ml (100units/ml) SC SCH (22:01)
[2021-01-15] MEDS: ATORVASTATIN 20 MG TAB PO SCH (22:02)
[2021-01-16] MEDS: VANCOMYCIN 1GM/250ML 250 ML IV SCH (02:22)
[2021-01-16 05:00] VITALS: BP 98/53
[2021-01-16] MEDS: PIPERACILLIN-TAZOB 3.375GM 100 ML IV SCH ×2 (05:10→14:00)
[2021-01-16] MEDS: DICYCLOMINE HCL 10 MG CAP PO SCH ×2 (06:07→14:00)
[2021-01-16] MEDS: HYDROCORTISONE 2.5% TOPICAL CREAM 30GM TUBE TOP SCH ×2 (06:08→14:00)
[2021-01-16] MEDS: metFORMIN HYDROCHLORIDE 500 MG TAB PO SCH (07:30)
[2021-01-16] MEDS: diphenhdrAMINE HCL 50 MG/1 ML VL IV PRN (07:30)
[2021-01-16 09:00] VITALS: BP 126/66
[2021-01-16] MEDS: LISINOPRIL 10 MG TAB PO SCH (09:30)
[2021-01-16] MEDS: HYDROcodone-ACET 10/325MG TAB PO PRN (09:44)
[2021-01-16] MEDS: ACCU-CHEK COMFORT CURVE STRIP VI SCH (10:09)
[2021-01-16] MEDS: InsuLIN REG 1unit/0.01ml Soln (100units/ml) SC SCH (10:17)
[2021-01-16] MEDS ORDERED: CIPR500T4 PO (12:55)
[2021-01-16 13:00] VITALS: BP 104/63
[2021-01-16] MEDS ORDERED: LACTULOSE 20Gm/30ML SOLN PO ONE (13:00)
[2021-01-16 13:54] VITALS: BP 126/66
== END 2021-01-16 14:58 | DRG 504 ==
LOC: TELE-CENTR 15:25 → CENTRAL 22:35
PROVIDERS: ADMIT Internal Medicine; ATTEND Internal Medicine
PROC: 0Y6Q0Z0 Detachment at Left 1st Toe, Complete, Open Approach (ICD-10-PCS; principal; 2020-12-08 09:07)
DX: T87.89 Other complications of amputation stump (principal); M86.8X7 Other osteomyelitis, ankle and foot; E44.1 Mild protein-calorie malnutrition; E88.09 Other disorders of plasma-protein metabolism, not elsewhere classified; E11.69 Type 2 diabetes mellitus with other specified complication; I10 Essential (primary) hypertension; E11.649 Type 2 diabetes mellitus with hypoglycemia without coma; E11.51 Type 2 diabetes mellitus with diabetic peripheral angiopathy without gangrene; B35.1 Tinea unguium; K58.0 Irritable bowel syndrome with diarrhea; L30.9 Dermatitis, unspecified; Z20.822 Contact with and (suspected) exposure to COVID-19; Y83.8 Other surgical procedures as the cause of abnormal reaction of the patient, or of later complication, without mention of misadventure at the time of the procedure; I95.9 Hypotension, unspecified; J45.909 Unspecified asthma, uncomplicated; Z83.3 Family history of diabetes mellitus; Z68.31 Body mass index [BMI] 31.0-31.9, adult
CPT/HCPCS: 36415; 36569; 71045; 73718; 80048; 80053; 80202; 82565; 82962; 84520; 85025; 85049; 85610; 85730; 87081; 87205; 87426; 87493; 93005; G0378; J0330; J0690; J1815; J2001; J2250; J2405; J2543; J2704